=== PATIENT | male | born 1970 | race Caucasian/White ===

== ENCOUNTER 2017-07-14 21:15 | Inpatient (IN) | payer MEDICARE, MEDICAID ==
[~2017-07-14] VITALS: Ht 175.3 cm; Wt 75.5 kg
[~2017-07-14 21:15] MED LIST: NOCURR
[2017-07-14] MEDS ORDERED: DESV50TA10 PO (21:55)
[2017-07-14] MEDS ORDERED: DUTA.5 PO (21:55)
[2017-07-14] MEDS ORDERED: INSU100I26 SQ ×2 (21:55)
[2017-07-14 22:23] LABS: AMPHET/METH SCREEN,URINE NEGATIVE (NEGATIVE); BARBITURATE SCREEN, URINE NEGATIVE (NEGATIVE); BENZODIAZEPINES SCREEN,URINE NEGATIVE (NEGATIVE); CANNABINOID SCREEN,URINE POSITIVE (NEGATIVE); COCAINE SCREEN,URINE NEGATIVE (NEGATIVE); METHADONE SCREEN, URINE NEGATIVE (NEGATIVE); OPIATE SCREEN,URINE NEGATIVE (NEGATIVE)
[2017-07-14 22:24] LABS: PHENCYCLIDINE SCREEN,URINE NEGATIVE (NEGATIVE)
[2017-07-14 22:25] LABS: EOSINOPHILS % (AUTO) 0.4 % (1.0-6.0); HEMATOCRIT 48.2 % (41-53); HEMOGLOBIN 16.7 g/dL (13.5-17.5); LYMPHOCYTES # (AUTO) 2.1 K/uL (1.0-4.8); LYMPHOCYTES % (AUTO) 43.6 % (22.0-44.0); MEAN CORPUSCULAR HEMOGLOBIN 31.3 pg (26.0-34.0); MEAN CORPUSCULAR HGB CONC 34.7 G/dL (31.0-37.0); MEAN CORPUSCULAR VOLUME 90 fL (80-100); MONOCYTES # (AUTO) 0.5 K/uL (0.1-1.0); MONOCYTES % (AUTO) 10.8 % (2.0-9.0); NEUTROPHILS # (AUTO) 2.1 K/uL (1.8-7.7); NEUTROPHILS % (AUTO) 44.2 % (40.0-70.0); PLATELET COUNT (AUTO) 304 K/uL (150-450); RED BLOOD CELL COUNT(AUTO) 5.34 MIL/uL (4.50-5.90); RED CELL DISTRIBUTION WIDTH 15.4 % (11.5-14.5)
[2017-07-14 22:36] LABS: ANION GAP 21 mmol/L (8-16); CALCIUM, TOTAL 8.8 mg/dL (8.8-10.5); CARBON DIOXIDE 21 mmol/L (22-29); CHLORIDE 94 mmol/L (98-107); CREATININE 1.07 mg/dL (0.60-1.30); GLOMERULAR FILTR. RATE CALC > 60 mL/min (>60); GLUCOSE,RANDOM 337 mg/dL (70-110); POTASSIUM 4.2 mmol/L (3.5-5.1); SODIUM SERUM 136 mmol/L (136-145); UREA NITROGEN, BLOOD 9 mg/dL (7-18)
[2017-07-14 22:43] LABS: ALANINE AMINOTRANSFERASE 69 U/L (12-78); ALBUMIN 4.3 g/dL (3.4-5.0); ALKALINE PHOSPHATASE 146 U/L (46-116); ASPARTATE AMINOTRANSFERASE 46 U/L (15-37); BILIRUBIN,TOTAL 0.3 mg/dL (0.1-1.0); TOTAL PROTEIN, SERUM 8.5 g/dL (6.4-8.2)
[2017-07-14] MEDS ORDERED: INSULIN REGULAR, HUMAN 100 UNITS/ML SQ ONE (22:45)
[2017-07-15] MEDS ORDERED: HALOPERIDOL 5 MG TABLET PO PRN (00:45)
[2017-07-15] MEDS ORDERED: LORazepam 2 MG TABLET PO PRN (00:45)
[2017-07-15] MEDS ORDERED: INSULIN GLARGINE,HUM.REC.ANLOG 100 UNITS/ML SQ ONE (03:00)
[2017-07-15] MEDS ORDERED: LORazepam 2 MG TABLET PO ONE (04:45)
[2017-07-15] MEDS ORDERED: ACETAMINOPHEN 500 MG TABLET PO ONE (04:45)
[2017-07-15 09:35] VITALS: BP 121/89
[2017-07-15 10:12] VITALS: BP 140/85
[2017-07-15] MEDS ORDERED: HydrOXYzine PAMOATE 50 MG CAPSULE PO PRN (10:15)
[2017-07-15] MEDS ORDERED: CYANOCOBALAMIN 1,000 MCG/ML VIAL IM ONE (10:15)
[2017-07-15] MEDS: VENLAFAXINE HCL 75 MG ER CAPSULE PO SCH (10:30)
[2017-07-15] MEDS: THIAMINE HCL 100 MG TABLET PO SCH ×2 (10:30→17:27)
[2017-07-15] MEDS: FOLIC ACID 1 MG TABLET PO SCH (10:30)
[2017-07-15] MEDS: MULTIVITAMINS WITH MINERALS, THERAPEUTIC TABLET PO SCH (10:31)
[2017-07-15] MEDS: NICOTINE 21 MG/24 HOUR PATCH TD SCH (10:31)
[2017-07-15] MEDS: LORazepam 2 MG TABLET PO PRN ×2 (10:37→20:17)
[2017-07-15] MEDS ORDERED: [UNRECOGNIZED DRUG - OTHER] SQ SCH ×2 (11:45→21:00)
[2017-07-15] MEDS ORDERED: GLUCAGON,HUMAN RECOMBINANT 1 MG VIAL IM PRN (11:45)
[2017-07-15] MEDS ORDERED: BENZOCAINE/MENTHOL LOZENGE MM PRN (14:30)
[2017-07-15] MEDS ORDERED: BACITRACIN 28.4 GM OINTMENT TP PRN (14:30)
[2017-07-15] MEDS ORDERED: LOPERAMIDE HCL 2 MG CAPSULE PO PRN (14:30)
[2017-07-15] MEDS ORDERED: CloNIDine HCL 0.1 MG TABLET PO PRN (14:30)
[2017-07-15] MEDS ORDERED: ALBUTEROL SULFATE HFA 90 MCG/PUFF 8 GM INHALER IH PRN (14:30)
[2017-07-15] MEDS ORDERED: ONDANSETRON HCL 4 MG TABLET PO PRN (14:30)
[2017-07-15] MEDS ORDERED: MAG HYDROX/AL HYDROX/SIMETH ES 30 ML SUSPENSION UDCUP PO PRN (14:30)
[2017-07-15] MEDS ORDERED: PETROLATUM,WHITE 71 GM JELLY TP PRN (14:30)
[2017-07-15] MEDS ORDERED: MAGNESIUM CITRATE 300 ML ORAL SOLUTION PO ONE (14:30)
[2017-07-15 16:28] VITALS: BP 136/80
[2017-07-15 17:00] VITALS: BP 136/80
[2017-07-15] MEDS ORDERED: INSULIN LISPRO 100 UNITS/ML SQ ONE (17:30)
[2017-07-15] MEDS: INSULIN GLARGINE,HUM.REC.ANLOG 100 UNITS/ML SQ SCH (20:14)
[2017-07-15] MEDS: INSULIN LISPRO 100 UNITS/ML SQ PRN (20:14)
[2017-07-15] MEDS: ZOLPIDEM TARTRATE 10 MG TABLET PO PRN (22:47)
[2017-07-16] VITALS (8 sets, daily range): BP systolic 126–143; BP diastolic 80–98
[2017-07-16] MEDS: LORazepam 2 MG TABLET PO PRN (05:52)
[2017-07-16] MEDS ORDERED: LORazepam 2 MG TABLET PO PRN (07:00)
[2017-07-16 08:22] LABS: BASOPHILS % (AUTO) 0.7 % (0.0-2.0); EOSINOPHILS % (AUTO) 1.4 % (1.0-6.0); HEMATOCRIT 41.3 % (41-53); HEMOGLOBIN 14.5 g/dL (13.5-17.5); LYMPHOCYTES # (AUTO) 1.5 K/uL (1.0-4.8); LYMPHOCYTES % (AUTO) 38.9 % (22.0-44.0); MEAN CORPUSCULAR HEMOGLOBIN 31.2 pg (26.0-34.0); MEAN CORPUSCULAR HGB CONC 35.1 G/dL (31.0-37.0); MEAN CORPUSCULAR VOLUME 89 fL (80-100); MONOCYTES # (AUTO) 0.8 K/uL (0.1-1.0); MONOCYTES % (AUTO) 21.8 % (2.0-9.0); NEUTROPHILS # (AUTO) 1.4 K/uL (1.8-7.7); NEUTROPHILS % (AUTO) 37.2 % (40.0-70.0); PLATELET COUNT (AUTO) 254 K/uL (150-450); RED BLOOD CELL COUNT(AUTO) 4.64 MIL/uL (4.50-5.90)
[2017-07-16 08:36] LABS: ALANINE AMINOTRANSFERASE 55 U/L (12-78); ALBUMIN 3.7 g/dL (3.4-5.0); ALKALINE PHOSPHATASE 104 U/L (46-116); ANION GAP 8 mmol/L (8-16); ASPARTATE AMINOTRANSFERASE 41 U/L (15-37); BILIRUBIN,TOTAL 0.8 mg/dL (0.1-1.0); CALCIUM, TOTAL 8.9 mg/dL (8.8-10.5); CARBON DIOXIDE 31 mmol/L (22-29); CHLORIDE 97 mmol/L (98-107); CREATININE 0.78 mg/dL (0.60-1.30); GLOMERULAR FILTR. RATE CALC > 60 mL/min (>60); GLUCOSE,RANDOM 101 mg/dL (70-110); HEMOGLOBIN A1C 11.3 % (4.5-6.2); POTASSIUM 3.1 mmol/L (3.5-5.1); SODIUM SERUM 136 mmol/L (136-145); TOTAL PROTEIN, SERUM 7.1 g/dL (6.4-8.2); UREA NITROGEN, BLOOD 12 mg/dL (7-18)
[2017-07-16 08:57] LABS: CHOL/HDL RATIO 4.2 (4.2-7.3); FREE T4 (FREE THYROXINE) 0.91 ng/dL (0.76-1.46); THYROID STIMULATING HORMONE 2.31 uIU/mL (0.36-3.74)
[2017-07-16] MEDS: OMEPRAZOLE 20 MG CAPSULE PO SCH (09:03)
[2017-07-16] MEDS: VENLAFAXINE HCL 75 MG ER CAPSULE PO SCH (09:03)
[2017-07-16] MEDS: MULTIVITAMINS WITH MINERALS, THERAPEUTIC TABLET PO SCH (09:03)
[2017-07-16] MEDS: FOLIC ACID 1 MG TABLET PO SCH (09:03)
[2017-07-16] MEDS: LORazepam 2 MG TABLET PO SCH ×4 (09:04→20:35)
[2017-07-16] MEDS: DOCUSATE SODIUM 100 MG CAPSULE PO SCH (09:04)
[2017-07-16] MEDS: NICOTINE 21 MG/24 HOUR PATCH TD SCH (09:04)
[2017-07-16] MEDS: THIAMINE HCL 100 MG TABLET PO SCH ×2 (09:04→16:38)
[2017-07-16] MEDS: INSULIN GLARGINE,HUM.REC.ANLOG 100 UNITS/ML SQ SCH ×2 (09:12→20:49)
[2017-07-16 09:47] LABS: GLUCOSE,POINT OF CARE 339 MG/DL (70-110)
[2017-07-16 09:47] LABS: GLUCOMETER DEV NAME(LOC) BV2N3; GLUCOSE,POINT OF CARE 466 MG/DL (70-110)
[2017-07-16 09:47] LABS: GLUCOSE,POINT OF CARE 247 MG/DL (70-110)
[2017-07-16 09:47] LABS: GLUCOMETER DEV NAME(LOC) BV2N3; GLUCOSE,POINT OF CARE 409 MG/DL (70-110)
[2017-07-16 09:47] LABS: GLUCOMETER DEV NAME(LOC) BV2N3; GLUCOSE,POINT OF CARE 357 MG/DL (70-110)
[2017-07-16 09:47] LABS: GLUCOMETER DEV NAME(LOC) BV2N3; GLUCOSE,POINT OF CARE 271 MG/DL (70-110)
[2017-07-16 09:47] LABS: GLUCOSE,POINT OF CARE 300 MG/DL (70-110)
[2017-07-16 09:47] LABS: GLUCOMETER DEV NAME(LOC) BV2N3; GLUCOSE,POINT OF CARE 101 MG/DL (70-110)
[2017-07-16] MEDS ORDERED: POTASSIUM CHLORIDE 20 MEQ ER TABLET PO ONE (10:00)
[2017-07-16 11:02] LABS: GLUCOMETER DEV NAME(LOC) BV2N3; GLUCOSE,POINT OF CARE 321 MG/DL (70-110)
[2017-07-16] MEDS: INSULIN LISPRO 100 UNITS/ML SQ PRN ×3 (11:03→20:49)
[2017-07-16] MEDS: MAGNESIUM HYDROXIDE SUSPENSION 30 ML UDCUP PO PRN (12:59)
[2017-07-16] MEDS: DUTASTERIDE 0.5 MG CAPSULE PO SCH (16:38)
[2017-07-16 19:13] LABS: GLUCOMETER DEV NAME(LOC) BV2N3; GLUCOSE,POINT OF CARE 348 MG/DL (70-110)
[2017-07-16] MEDS: SIMVASTATIN 10 MG TABLET PO SCH (20:35)
[2017-07-16 20:37] LABS: GLUCOMETER DEV NAME(LOC) BV2N3; GLUCOSE,POINT OF CARE 391 MG/DL (70-110)
[2017-07-16] MEDS: ZOLPIDEM TARTRATE 10 MG TABLET PO PRN (22:37)
[2017-07-17 06:31] VITALS: BP 124/90
[2017-07-17 06:32] VITALS: BP 124/90
[2017-07-17 06:37] LABS: GLUCOMETER DEV NAME(LOC) BV2N3; GLUCOSE,POINT OF CARE 187 MG/DL (70-110)
[2017-07-17] MEDS: INSULIN LISPRO 100 UNITS/ML SQ PRN ×4 (06:38→20:41)
[2017-07-17 08:26] VITALS: BP 129/86
[2017-07-17] MEDS: THIAMINE HCL 100 MG TABLET PO SCH ×2 (08:58→16:31)
[2017-07-17] MEDS: FOLIC ACID 1 MG TABLET PO SCH (08:58)
[2017-07-17] MEDS: DOCUSATE SODIUM 100 MG CAPSULE PO SCH (08:58)
[2017-07-17] MEDS: LORazepam 2 MG TABLET PO SCH ×4 (08:58→20:57)
[2017-07-17] MEDS: DUTASTERIDE 0.5 MG CAPSULE PO SCH (08:58)
[2017-07-17] MEDS: VENLAFAXINE HCL 75 MG ER CAPSULE PO SCH (08:58)
[2017-07-17] MEDS: OMEPRAZOLE 20 MG CAPSULE PO SCH (08:58)
[2017-07-17] MEDS: MULTIVITAMINS WITH MINERALS, THERAPEUTIC TABLET PO SCH (08:58)
[2017-07-17] MEDS: NICOTINE 21 MG/24 HOUR PATCH TD SCH (08:59)
[2017-07-17] MEDS: INSULIN GLARGINE,HUM.REC.ANLOG 100 UNITS/ML SQ SCH ×2 (09:08→20:38)
[2017-07-17 09:13] LABS: GLUCOMETER DEV NAME(LOC) BV2N3; GLUCOSE,POINT OF CARE 366 MG/DL (70-110)
[2017-07-17 11:02] LABS: GLUCOMETER DEV NAME(LOC) BV2N3; GLUCOSE,POINT OF CARE 266 MG/DL (70-110)
[2017-07-17] MEDS ORDERED: TraMADol HCL 50 MG TABLET PO PRN (14:45)
[2017-07-17 16:42] LABS: GLUCOMETER DEV NAME(LOC) BV2N3; GLUCOSE,POINT OF CARE 315 MG/DL (70-110)
[2017-07-17 16:58] VITALS: BP 138/84
[2017-07-17 16:59] VITALS: BP 138/84
[2017-07-17 20:39] LABS: GLUCOMETER DEV NAME(LOC) BV2N3; GLUCOSE,POINT OF CARE 298 MG/DL (70-110)
[2017-07-17] MEDS ORDERED: POTASSIUM CHLORIDE 20 MEQ ER TABLET PO ONE (20:45)
[2017-07-17] MEDS: SIMVASTATIN 10 MG TABLET PO SCH (20:58)
[2017-07-17] MEDS: LIDOCAINE HCL 5% TRANSDERMAL PATCH TD SCH (21:49)
[2017-07-17] MEDS: ZOLPIDEM TARTRATE 10 MG TABLET PO PRN (22:38)
[2017-07-18 06:13] LABS: GLUCOMETER DEV NAME(LOC) BV2N3; GLUCOSE,POINT OF CARE 265 MG/DL (70-110)
[2017-07-18] MEDS: INSULIN LISPRO 100 UNITS/ML SQ PRN ×3 (06:30→20:29)
[2017-07-18] MEDS ORDERED: LORazepam 1 MG TABLET PO PRN (07:00)
[2017-07-18 08:09] VITALS: BP 119/87
[2017-07-18 08:20] LABS: ANION GAP 5 mmol/L (8-16); CALCIUM, TOTAL 8.9 mg/dL (8.8-10.5); CARBON DIOXIDE 29 mmol/L (22-29); CHLORIDE 100 mmol/L (98-107); CREATININE 0.81 mg/dL (0.60-1.30); GLOMERULAR FILTR. RATE CALC > 60 mL/min (>60); GLUCOSE,RANDOM 230 mg/dL (70-110); POTASSIUM 4.2 mmol/L (3.5-5.1); SODIUM SERUM 134 mmol/L (136-145); UREA NITROGEN, BLOOD 15 mg/dL (7-18)
[2017-07-18] MEDS: FOLIC ACID 1 MG TABLET PO SCH (08:56)
[2017-07-18] MEDS: OMEPRAZOLE 20 MG CAPSULE PO SCH (08:56)
[2017-07-18] MEDS: DUTASTERIDE 0.5 MG CAPSULE PO SCH (08:56)
[2017-07-18] MEDS: THIAMINE HCL 100 MG TABLET PO SCH ×2 (08:56→16:29)
[2017-07-18] MEDS: LORazepam 1 MG TABLET PO SCH ×4 (08:56→20:31)
[2017-07-18] MEDS: DOCUSATE SODIUM 100 MG CAPSULE PO SCH (08:56)
[2017-07-18] MEDS: MULTIVITAMINS WITH MINERALS, THERAPEUTIC TABLET PO SCH (08:56)
[2017-07-18] MEDS: VENLAFAXINE HCL 75 MG ER CAPSULE PO SCH (08:56)
[2017-07-18] MEDS: NICOTINE 21 MG/24 HOUR PATCH TD SCH (08:57)
[2017-07-18] MEDS: -LIDODERM PATCH NOTE- MISC SCH (09:10)
[2017-07-18] MEDS: INSULIN GLARGINE,HUM.REC.ANLOG 100 UNITS/ML SQ SCH ×2 (09:11→20:30)
[2017-07-18 09:18] LABS: GLUCOMETER DEV NAME(LOC) BV2N3; GLUCOSE,POINT OF CARE 334 MG/DL (70-110)
[2017-07-18 11:17] LABS: GLUCOMETER DEV NAME(LOC) BV2N3; GLUCOSE,POINT OF CARE 275 MG/DL (70-110)
[2017-07-18 16:07] VITALS: BP 123/79
[2017-07-18 16:16] VITALS: BP 123/79
[2017-07-18 16:27] LABS: GLUCOMETER DEV NAME(LOC) BV2N3; GLUCOSE,POINT OF CARE 455 MG/DL (70-110)
[2017-07-18] MEDS ORDERED: INSULIN LISPRO 100 UNITS/ML SQ ONE (16:45)
[2017-07-18 17:18] LABS: GLUCOMETER DEV NAME(LOC) BV2N3; GLUCOSE,POINT OF CARE 347 MG/DL (70-110)
[2017-07-18 20:12] LABS: GLUCOMETER DEV NAME(LOC) BV2N3; GLUCOSE,POINT OF CARE 220 MG/DL (70-110)
[2017-07-18] MEDS: SIMVASTATIN 10 MG TABLET PO SCH (20:31)
[2017-07-18] MEDS: LIDOCAINE HCL 5% TRANSDERMAL PATCH TD SCH (21:12)
[2017-07-18] MEDS: ZOLPIDEM TARTRATE 10 MG TABLET PO PRN (22:26)
[2017-07-19 00:52] VITALS: BP 117/79
[2017-07-19 00:55] VITALS: BP 117/79
[2017-07-19 06:22] LABS: GLUCOMETER DEV NAME(LOC) BV2N3; GLUCOSE,POINT OF CARE 193 MG/DL (70-110)
[2017-07-19] MEDS: INSULIN LISPRO 100 UNITS/ML SQ PRN ×4 (06:29→20:33)
[2017-07-19] MEDS ORDERED: LORazepam 1 MG TABLET PO PRN (07:00)
[2017-07-19] MEDS: OMEPRAZOLE 20 MG CAPSULE PO SCH (09:05)
[2017-07-19] MEDS: VENLAFAXINE HCL 150 MG ER CAPSULE PO SCH (09:05)
[2017-07-19] MEDS: DOCUSATE SODIUM 100 MG CAPSULE PO SCH (09:05)
[2017-07-19] MEDS: DUTASTERIDE 0.5 MG CAPSULE PO SCH (09:05)
[2017-07-19] MEDS: NICOTINE 21 MG/24 HOUR PATCH TD SCH (09:06)
[2017-07-19] MEDS: -LIDODERM PATCH NOTE- MISC SCH (09:06)
[2017-07-19] MEDS: THIAMINE HCL 100 MG TABLET PO SCH ×2 (09:06→16:38)
[2017-07-19] MEDS: FOLIC ACID 1 MG TABLET PO SCH (09:06)
[2017-07-19] MEDS: MULTIVITAMINS WITH MINERALS, THERAPEUTIC TABLET PO SCH (09:06)
[2017-07-19] MEDS: INSULIN GLARGINE,HUM.REC.ANLOG 100 UNITS/ML SQ SCH ×2 (09:16→20:32)
[2017-07-19 09:18] LABS: GLUCOMETER DEV NAME(LOC) BV2N3; GLUCOSE,POINT OF CARE 374 MG/DL (70-110)
[2017-07-19 10:08] VITALS: BP 103/62
[2017-07-19 11:07] LABS: GLUCOMETER DEV NAME(LOC) BV2N3; GLUCOSE,POINT OF CARE 317 MG/DL (70-110)
[2017-07-19 16:32] VITALS: BP 118/76
[2017-07-19 16:38] LABS: GLUCOMETER DEV NAME(LOC) BV2N3; GLUCOSE,POINT OF CARE 274 MG/DL (70-110)
[2017-07-19 17:01] VITALS: BP 118/76
[2017-07-19] MEDS ORDERED: MAGNESIUM CITRATE 300 ML ORAL SOLUTION PO ONE (18:15)
[2017-07-19 20:23] LABS: GLUCOMETER DEV NAME(LOC) BV2N3; GLUCOSE,POINT OF CARE 348 MG/DL (70-110)
[2017-07-19] MEDS: SIMVASTATIN 10 MG TABLET PO SCH (20:32)
[2017-07-19] MEDS: LIDOCAINE HCL 5% TRANSDERMAL PATCH TD SCH (20:46)
[2017-07-20 02:41] VITALS: BP 118/90
[2017-07-20 06:37] LABS: GLUCOMETER DEV NAME(LOC) BV2N3; GLUCOSE,POINT OF CARE 122 MG/DL (70-110)
[2017-07-20] MEDS: INSULIN LISPRO 100 UNITS/ML SQ PRN ×4 (06:38→20:30)
[2017-07-20 08:00] VITALS: BP 119/73
[2017-07-20] MEDS: VENLAFAXINE HCL 150 MG ER CAPSULE PO SCH (08:08)
[2017-07-20] MEDS: OMEPRAZOLE 20 MG CAPSULE PO SCH (08:08)
[2017-07-20] MEDS: MULTIVITAMINS WITH MINERALS, THERAPEUTIC TABLET PO SCH (08:08)
[2017-07-20] MEDS: DOCUSATE SODIUM 100 MG CAPSULE PO SCH (08:08)
[2017-07-20] MEDS: FOLIC ACID 1 MG TABLET PO SCH (08:08)
[2017-07-20] MEDS: THIAMINE HCL 100 MG TABLET PO SCH ×2 (08:08→16:25)
[2017-07-20] MEDS: DUTASTERIDE 0.5 MG CAPSULE PO SCH (08:08)
[2017-07-20] MEDS: NICOTINE 21 MG/24 HOUR PATCH TD SCH (08:09)
[2017-07-20] MEDS: -LIDODERM PATCH NOTE- MISC SCH (08:22)
[2017-07-20] MEDS: INSULIN GLARGINE,HUM.REC.ANLOG 100 UNITS/ML SQ SCH ×2 (08:22→20:30)
[2017-07-20 08:27] LABS: GLUCOMETER DEV NAME(LOC) BV2N3; GLUCOSE,POINT OF CARE 352 MG/DL (70-110)
[2017-07-20 11:00] VITALS: BP 115/74
[2017-07-20] MEDS: TraMADol HCL 50 MG TABLET PO PRN ×2 (11:00→20:25)
[2017-07-20 11:08] LABS: GLUCOMETER DEV NAME(LOC) BV2N3; GLUCOSE,POINT OF CARE 267 MG/DL (70-110)
[2017-07-20] MEDS: TiZANidine HCL 4 MG TABLET PO SCH ×3 (12:00→16:25)
[2017-07-20] MEDS: TERBINAFINE HCL 1% 30 GM CREAM TP SCH ×2 (12:57→16:26)
[2017-07-20 16:08] VITALS: BP 121/85
[2017-07-20 16:37] LABS: GLUCOMETER DEV NAME(LOC) BV2N3; GLUCOSE,POINT OF CARE 186 MG/DL (70-110)
[2017-07-20] MEDS: SIMVASTATIN 10 MG TABLET PO SCH (20:24)
[2017-07-20 20:25] VITALS: BP 117/77
[2017-07-20] MEDS: LIDOCAINE HCL 5% TRANSDERMAL PATCH TD SCH (20:25)
[2017-07-20 20:44] LABS: GLUCOMETER DEV NAME(LOC) BV2N3; GLUCOSE,POINT OF CARE 262 MG/DL (70-110)
[2017-07-21 00:27] VITALS: BP 143/61
[2017-07-21 06:42] LABS: GLUCOMETER DEV NAME(LOC) BV2N3; GLUCOSE,POINT OF CARE 126 MG/DL (70-110)
[2017-07-21] MEDS: INSULIN LISPRO 100 UNITS/ML SQ PRN ×4 (06:43→20:52)
[2017-07-21 08:00] VITALS: BP 110/70
[2017-07-21] MEDS: TiZANidine HCL 4 MG TABLET PO SCH ×3 (08:55→16:32)
[2017-07-21] MEDS: THIAMINE HCL 100 MG TABLET PO SCH ×2 (08:55→16:32)
[2017-07-21] MEDS: MULTIVITAMINS WITH MINERALS, THERAPEUTIC TABLET PO SCH (08:56)
[2017-07-21] MEDS: FOLIC ACID 1 MG TABLET PO SCH (08:56)
[2017-07-21] MEDS: VENLAFAXINE HCL 150 MG ER CAPSULE PO SCH (08:56)
[2017-07-21] MEDS: DUTASTERIDE 0.5 MG CAPSULE PO SCH (08:56)
[2017-07-21] MEDS: OMEPRAZOLE 20 MG CAPSULE PO SCH (08:56)
[2017-07-21] MEDS: DOCUSATE SODIUM 100 MG CAPSULE PO SCH (08:56)
[2017-07-21] MEDS: NICOTINE 21 MG/24 HOUR PATCH TD SCH (08:56)
[2017-07-21] MEDS: TERBINAFINE HCL 1% 30 GM CREAM TP SCH ×2 (08:59→16:32)
[2017-07-21] MEDS: -LIDODERM PATCH NOTE- MISC SCH (09:04)
[2017-07-21] MEDS: TraMADol HCL 50 MG TABLET PO PRN ×2 (09:07→18:36)
[2017-07-21 09:12] LABS: GLUCOMETER DEV NAME(LOC) BV2N3; GLUCOSE,POINT OF CARE 440 MG/DL (70-110)
[2017-07-21] MEDS: INSULIN GLARGINE,HUM.REC.ANLOG 100 UNITS/ML SQ SCH ×2 (09:13→20:50)
[2017-07-21 10:27] LABS: GLUCOMETER DEV NAME(LOC) BV2N3; GLUCOSE,POINT OF CARE 477 MG/DL (70-110)
[2017-07-21] MEDS ORDERED: INSULIN LISPRO 100 UNITS/ML SQ ONE (10:30)
[2017-07-21 11:48] LABS: GLUCOMETER DEV NAME(LOC) BV2N3; GLUCOSE,POINT OF CARE 358 MG/DL (70-110)
[2017-07-21 13:22] LABS: GLUCOMETER DEV NAME(LOC) BV2N3; GLUCOSE,POINT OF CARE 135 MG/DL (70-110)
[2017-07-21 15:32] LABS: GLUCOMETER DEV NAME(LOC) BV2N3; GLUCOSE,POINT OF CARE 196 MG/DL (70-110)
[2017-07-21 16:20] VITALS: BP 125/79
[2017-07-21 18:29] VITALS: BP 113/75
[2017-07-21 20:17] LABS: GLUCOMETER DEV NAME(LOC) BV2N3; GLUCOSE,POINT OF CARE 326 MG/DL (70-110)
[2017-07-21] MEDS: SIMVASTATIN 10 MG TABLET PO SCH (20:41)
[2017-07-21] MEDS: LIDOCAINE HCL 5% TRANSDERMAL PATCH TD SCH (21:28)
[2017-07-21] MEDS: MAGNESIUM HYDROXIDE SUSPENSION 30 ML UDCUP PO PRN (22:06)
[2017-07-22 00:51] VITALS: BP 125/89
[2017-07-22 06:33] LABS: GLUCOMETER DEV NAME(LOC) BV2N3; GLUCOSE,POINT OF CARE 96 MG/DL (70-110)
[2017-07-22] MEDS: MetFORMIN HCL 500 MG TABLET PO SCH ×2 (06:56→16:31)
[2017-07-22 08:18] VITALS: BP 112/72
[2017-07-22] MEDS: VENLAFAXINE HCL 150 MG ER CAPSULE PO SCH (08:59)
[2017-07-22] MEDS: DOCUSATE SODIUM 100 MG CAPSULE PO SCH (08:59)
[2017-07-22] MEDS: DUTASTERIDE 0.5 MG CAPSULE PO SCH (08:59)
[2017-07-22] MEDS: OMEPRAZOLE 20 MG CAPSULE PO SCH (08:59)
[2017-07-22] MEDS: MULTIVITAMINS WITH MINERALS, THERAPEUTIC TABLET PO SCH (08:59)
[2017-07-22] MEDS: TiZANidine HCL 4 MG TABLET PO SCH ×3 (08:59→16:31)
[2017-07-22] MEDS: THIAMINE HCL 100 MG TABLET PO SCH ×2 (08:59→16:31)
[2017-07-22] MEDS: FOLIC ACID 1 MG TABLET PO SCH (08:59)
[2017-07-22] MEDS: NICOTINE 21 MG/24 HOUR PATCH TD SCH (09:01)
[2017-07-22] MEDS: TERBINAFINE HCL 1% 30 GM CREAM TP SCH ×2 (09:01→16:33)
[2017-07-22] MEDS: INSULIN GLARGINE,HUM.REC.ANLOG 100 UNITS/ML SQ SCH ×2 (09:08→20:32)
[2017-07-22] MEDS: TraMADol HCL 50 MG TABLET PO PRN ×2 (09:09→18:31)
[2017-07-22] MEDS: -LIDODERM PATCH NOTE- MISC SCH (09:09)
[2017-07-22] MEDS ORDERED: MAGNESIUM CITRATE 300 ML ORAL SOLUTION PO ONE (09:15)
[2017-07-22 09:22] LABS: GLUCOMETER DEV NAME(LOC) BV2N3; GLUCOSE,POINT OF CARE 335 MG/DL (70-110)
[2017-07-22] MEDS: INSULIN LISPRO 100 UNITS/ML SQ PRN ×3 (10:59→20:31)
[2017-07-22 11:03] LABS: GLUCOMETER DEV NAME(LOC) BV2N3; GLUCOSE,POINT OF CARE 252 MG/DL (70-110)
[2017-07-22 16:01] VITALS: BP 133/74
[2017-07-22 16:13] LABS: GLUCOMETER DEV NAME(LOC) BV2N3; GLUCOSE,POINT OF CARE 220 MG/DL (70-110)
[2017-07-22 18:32] VITALS: BP 124/77
[2017-07-22 20:28] LABS: GLUCOMETER DEV NAME(LOC) BV2N3; GLUCOSE,POINT OF CARE 216 MG/DL (70-110)
[2017-07-22] MEDS: SIMVASTATIN 10 MG TABLET PO SCH (20:33)
[2017-07-22] MEDS: LIDOCAINE HCL 5% TRANSDERMAL PATCH TD SCH (21:54)
[2017-07-23] MEDS: MAGNESIUM HYDROXIDE SUSPENSION 30 ML UDCUP PO PRN (00:33)
[2017-07-23 02:53] VITALS: BP 114/88
[2017-07-23 06:07] LABS: GLUCOMETER DEV NAME(LOC) BV2N3; GLUCOSE,POINT OF CARE 140 MG/DL (70-110)
[2017-07-23] MEDS: MetFORMIN HCL 500 MG TABLET PO SCH ×2 (07:07→16:27)
[2017-07-23] MEDS: INSULIN LISPRO 100 UNITS/ML SQ PRN ×4 (07:08→21:06)
[2017-07-23] MEDS: MULTIVITAMINS WITH MINERALS, THERAPEUTIC TABLET PO SCH (08:27)
[2017-07-23] MEDS: VENLAFAXINE HCL 150 MG ER CAPSULE PO SCH (08:27)
[2017-07-23] MEDS: DUTASTERIDE 0.5 MG CAPSULE PO SCH (08:27)
[2017-07-23] MEDS: DOCUSATE SODIUM 100 MG CAPSULE PO SCH (08:27)
[2017-07-23] MEDS: FOLIC ACID 1 MG TABLET PO SCH (08:27)
[2017-07-23] MEDS: THIAMINE HCL 100 MG TABLET PO SCH ×2 (08:27→16:27)
[2017-07-23] MEDS: OMEPRAZOLE 20 MG CAPSULE PO SCH (08:27)
[2017-07-23] MEDS: TiZANidine HCL 4 MG TABLET PO SCH ×3 (08:27→16:27)
[2017-07-23] MEDS: POLYETHYLENE GLYCOL 3350 17 GM PACKET PO SCH (08:27)
[2017-07-23] MEDS: NICOTINE 21 MG/24 HOUR PATCH TD SCH (08:28)
[2017-07-23 08:30] VITALS: BP 114/81
[2017-07-23] MEDS: TERBINAFINE HCL 1% 30 GM CREAM TP SCH ×2 (08:32→16:37)
[2017-07-23 08:33] LABS: GLUCOMETER DEV NAME(LOC) BV2N3; GLUCOSE,POINT OF CARE 218 MG/DL (70-110)
[2017-07-23] MEDS: INSULIN GLARGINE,HUM.REC.ANLOG 100 UNITS/ML SQ SCH ×2 (08:38→21:06)
[2017-07-23] MEDS: -LIDODERM PATCH NOTE- MISC SCH (08:39)
[2017-07-23 11:07] VITALS: BP 120/73
[2017-07-23 11:07] LABS: GLUCOMETER DEV NAME(LOC) BV2N3; GLUCOSE,POINT OF CARE 240 MG/DL (70-110)
[2017-07-23] MEDS: TraMADol HCL 50 MG TABLET PO PRN (11:07)
[2017-07-23 16:03] VITALS: BP 126/83
[2017-07-23 16:22] LABS: GLUCOMETER DEV NAME(LOC) BV2N3; GLUCOSE,POINT OF CARE 228 MG/DL (70-110)
[2017-07-23 20:37] LABS: GLUCOMETER DEV NAME(LOC) BV2N3; GLUCOSE,POINT OF CARE 180 MG/DL (70-110)
[2017-07-23] MEDS: SIMVASTATIN 10 MG TABLET PO SCH (21:00)
[2017-07-23] MEDS: ZOLPIDEM TARTRATE 10 MG TABLET PO PRN (21:13)
[2017-07-23] MEDS: LIDOCAINE HCL 5% TRANSDERMAL PATCH TD SCH (21:19)
[2017-07-24] MEDS: MetFORMIN HCL 500 MG TABLET PO SCH ×2 (06:05→16:55)
[2017-07-24 06:31] VITALS: BP 116/75
[2017-07-24 06:38] LABS: GLUCOMETER DEV NAME(LOC) BV2N3; GLUCOSE,POINT OF CARE 73 MG/DL (70-110)
[2017-07-24] MEDS ORDERED: VENL150C2 PO (06:42)
[2017-07-24 08:29] VITALS: BP 119/79
[2017-07-24] MEDS: TERBINAFINE HCL 1% 30 GM CREAM TP SCH ×2 (09:00→17:10)
[2017-07-24] MEDS: POLYETHYLENE GLYCOL 3350 17 GM PACKET PO SCH ×4 (09:00→17:00)
[2017-07-24] MEDS: DUTASTERIDE 0.5 MG CAPSULE PO SCH (09:08)
[2017-07-24] MEDS: THIAMINE HCL 100 MG TABLET PO SCH ×2 (09:08→16:55)
[2017-07-24] MEDS: OMEPRAZOLE 20 MG CAPSULE PO SCH (09:08)
[2017-07-24] MEDS: NICOTINE 21 MG/24 HOUR PATCH TD SCH (09:08)
[2017-07-24] MEDS: VENLAFAXINE HCL 150 MG ER CAPSULE PO SCH (09:08)
[2017-07-24] MEDS: MULTIVITAMINS WITH MINERALS, THERAPEUTIC TABLET PO SCH (09:08)
[2017-07-24] MEDS: TiZANidine HCL 4 MG TABLET PO SCH ×3 (09:09→16:55)
[2017-07-24] MEDS: DOCUSATE SODIUM 100 MG CAPSULE PO SCH (09:09)
[2017-07-24] MEDS: FOLIC ACID 1 MG TABLET PO SCH (09:09)
[2017-07-24] MEDS ORDERED: OMEP20 PO (09:13)
[2017-07-24] MEDS ORDERED: METF500T6 PO (09:13)
[2017-07-24] MEDS ORDERED: DSS100 PO (09:13)
[2017-07-24] MEDS ORDERED: INSLAN SQ ×2 (09:13)
[2017-07-24] MEDS ORDERED: TIZA4TAB4 PO (09:13)
[2017-07-24] MEDS ORDERED: VENL-68 PO (09:13)
[2017-07-24] MEDS ORDERED: SIMV-259 PO (09:13)
[2017-07-24] MEDS ORDERED: MIRALAX PO (09:13)
[2017-07-24 09:27] LABS: GLUCOMETER DEV NAME(LOC) BV2N3; GLUCOSE,POINT OF CARE 345 MG/DL (70-110)
[2017-07-24] MEDS: INSULIN GLARGINE,HUM.REC.ANLOG 100 UNITS/ML SQ SCH ×2 (09:29→20:40)
[2017-07-24] MEDS: TraMADol HCL 50 MG TABLET PO PRN ×2 (09:33→19:52)
[2017-07-24] MEDS: -LIDODERM PATCH NOTE- MISC SCH (09:33)
[2017-07-24] MEDS: INSULIN LISPRO 100 UNITS/ML SQ PRN ×3 (11:36→20:41)
[2017-07-24 11:48] LABS: GLUCOMETER DEV NAME(LOC) BV2N3; GLUCOSE,POINT OF CARE 383 MG/DL (70-110)
[2017-07-24 16:03] VITALS: BP 132/83
[2017-07-24 16:37] LABS: GLUCOMETER DEV NAME(LOC) BV2N3; GLUCOSE,POINT OF CARE 311 MG/DL (70-110)
[2017-07-24 19:53] VITALS: BP 120/84
[2017-07-24] MEDS: SIMVASTATIN 10 MG TABLET PO SCH (20:40)
[2017-07-24 20:42] LABS: GLUCOMETER DEV NAME(LOC) BV2N3; GLUCOSE,POINT OF CARE 277 MG/DL (70-110)
[2017-07-24] MEDS: LIDOCAINE HCL 5% TRANSDERMAL PATCH TD SCH (21:21)
[2017-07-24 23:30] VITALS: BP 129/88
[2017-07-25 03:45] VITALS: BP 120/82
[2017-07-25 06:12] LABS: GLUCOMETER DEV NAME(LOC) BV2N3; GLUCOSE,POINT OF CARE 148 MG/DL (70-110)
[2017-07-25] MEDS: INSULIN LISPRO 100 UNITS/ML SQ PRN (06:13)
[2017-07-25] MEDS: MetFORMIN HCL 500 MG TABLET PO SCH (06:49)
== END 2017-07-25 07:15 | disposition home or self-care (01) | DRG 885 ==
LOC: EDUNIT# 21:15 → EMS 21:16 → B2S 07-15 03:25 → B2X 07-15 04:45
DX: F33.2 Major depressive disorder, recurrent severe without psychotic features (principal); E11.65 Type 2 diabetes mellitus with hyperglycemia; K70.30 Alcoholic cirrhosis of liver without ascites; R45.851 Suicidal ideations; E86.0 Dehydration; F10.229 Alcohol dependence with intoxication, unspecified; Y90.8 Blood alcohol level of 240 mg/100 ml or more; F41.9 Anxiety disorder, unspecified; G47.00 Insomnia, unspecified; I10 Essential (primary) hypertension; K59.00 Constipation, unspecified; F12.10 Cannabis abuse, uncomplicated; Z59.0 Homelessness; Z88.6 Allergy status to analgesic agent; Z88.0 Allergy status to penicillin; Z79.899 Other long term (current) drug therapy; Z87.820 Personal history of traumatic brain injury; Z91.5 Personal history of self-harm; Z71.51 Drug abuse counseling and surveillance of drug abuser
CPT/HCPCS: 83036; 84132; 84439; 84443; 87081; 96372; 99285; G0480; J1815; J3420

== ENCOUNTER 2017-08-12 18:25 | Inpatient (IN) | payer MEDICAID, MEDICARE, OTHER ==
[~2017-08-12] VITALS: Ht 175.3 cm; Wt 79.5 kg
[~2017-08-12 18:25] MED LIST changes: +DSS100 PO; +DUTA.5 PO; +INSLAN SQ; +METF500T6 PO; +MIRALAX PO; -NOCURR; +OMEP20 PO; +SIMV-259 PO; +TIZA4TAB4 PO; +VENL-68 PO; +VENL150C2 PO
[2017-08-12] MEDS ORDERED: INSULIN REGULAR, HUMAN 100 UNITS/ML SQ ONE (19:00)
[2017-08-12] MEDS ORDERED: ATOR10TA84 PO (19:01)
[2017-08-12] MEDS ORDERED: OXYC10 PO (19:01)
[2017-08-12] MEDS ORDERED: INSU100V SQ (19:01)
[2017-08-12] MEDS ORDERED: CLON-570 PO (19:01)
[2017-08-12] MEDS ORDERED: DESV25TA PO (19:01)
[2017-08-12] MEDS ORDERED: INSLAN SQ (19:01)
[2017-08-12] MEDS ORDERED: AMPH20CA PO (19:01)
[2017-08-12 19:34] LABS: BASOPHILS % (AUTO) 0.5 % (0.0-2.0); EOSINOPHILS % (AUTO) 0.8 % (1.0-6.0); HEMATOCRIT 43.7 % (41-53); HEMOGLOBIN 15.3 g/dL (13.5-17.5); LYMPHOCYTES % (AUTO) 40.3 % (22.0-44.0); MEAN CORPUSCULAR HEMOGLOBIN 32.2 pg (26.0-34.0); MEAN CORPUSCULAR VOLUME 92 fL (80-100); MONOCYTES # (AUTO) 0.3 K/uL (0.1-1.0); NEUTROPHILS # (AUTO) 2.6 K/uL (1.8-7.7); NEUTROPHILS % (AUTO) 52.4 % (40.0-70.0); PLATELET COUNT (AUTO) 198 K/uL (150-450); RED BLOOD CELL COUNT(AUTO) 4.75 MIL/uL (4.50-5.90); RED CELL DISTRIBUTION WIDTH 15.2 % (11.5-14.5)
[2017-08-12 19:43] LABS: ANION GAP 9 mmol/L (8-16); CALCIUM, TOTAL 8.8 mg/dL (8.8-10.5); CARBON DIOXIDE 28 mmol/L (22-29); CHLORIDE 101 mmol/L (98-107); CREATININE 1.05 mg/dL (0.60-1.30); GLOMERULAR FILTR. RATE CALC > 60 mL/min (>60); GLUCOSE,RANDOM 388 mg/dL (70-110); POTASSIUM 4.1 mmol/L (3.5-5.1); SODIUM SERUM 138 mmol/L (136-145); UREA NITROGEN, BLOOD 9 mg/dL (7-18)
[2017-08-12 19:49] LABS: ALANINE AMINOTRANSFERASE 40 U/L (12-78); ALKALINE PHOSPHATASE 111 U/L (46-116); ASPARTATE AMINOTRANSFERASE 31 U/L (15-37); BILIRUBIN,TOTAL 0.3 mg/dL (0.1-1.0); TOTAL PROTEIN, SERUM 7.7 g/dL (6.4-8.2)
[2017-08-12 20:38] LABS: GLUCOSE,POINT OF CARE 346 MG/DL (70-110)
[2017-08-12 20:47] LABS: AMPHET/METH SCREEN,URINE NEGATIVE (NEGATIVE); BARBITURATE SCREEN, URINE NEGATIVE (NEGATIVE); BENZODIAZEPINES SCREEN,URINE NEGATIVE (NEGATIVE); CANNABINOID SCREEN,URINE NEGATIVE (NEGATIVE); COCAINE SCREEN,URINE NEGATIVE (NEGATIVE); METHADONE SCREEN, URINE NEGATIVE (NEGATIVE); OPIATE SCREEN,URINE NEGATIVE (NEGATIVE); PHENCYCLIDINE SCREEN,URINE NEGATIVE (NEGATIVE)
[2017-08-12] MEDS ORDERED: ZOLPIDEM TARTRATE 10 MG TABLET PO PRN (21:00)
[2017-08-12] MEDS ORDERED: HALOPERIDOL 5 MG TABLET PO PRN (21:00)
[2017-08-12] MEDS ORDERED: HydrOXYzine PAMOATE 50 MG CAPSULE PO PRN (21:00)
[2017-08-12] MEDS ORDERED: LORazepam 2 MG TABLET PO PRN (21:00)
[2017-08-12] MEDS ORDERED: LOPERAMIDE HCL 2 MG CAPSULE PO PRN (21:00)
[2017-08-12] MEDS ORDERED: CYANOCOBALAMIN 1,000 MCG/ML VIAL IM ONE (21:00)
[2017-08-12] MEDS ORDERED: GuaiFENesin/D-METHORPHAN [SUGAR-FREE] 200-20MG/10 ML SYRUP UDCUP PO PRN (21:00)
[2017-08-12] MEDS: MULTIVITAMINS WITH MINERALS, THERAPEUTIC TABLET PO SCH (21:10)
[2017-08-12] MEDS: THIAMINE HCL 100 MG TABLET PO SCH (21:10)
[2017-08-12] MEDS: FOLIC ACID 1 MG TABLET PO SCH (21:10)
[2017-08-12 23:25] LABS: APPEARANCE,URINE CLEAR (CLEAR); BILIRUBIN,URINE NEGATIVE (NEGATIVE); GLUCOSE, URINE (UA) >=1000 mg/dL (NEGATIVE); KETONES,URINE 40 mg/dL (NEGATIVE); LEUKOCYTE ESTERASE ,URINE NEGATIVE (NEGATIVE); NITRATE,URINE NEGATIVE (NEGATIVE); OCCULT BLOOD,URINE NEGATIVE (NEGATIVE); PH,URINE 5.5 (5.0-8.0); PROTEIN,URINE NEGATIVE (NEGATIVE); UROBILINOGEN,URINE 0.2 mg/dL (<=1.0)
[2017-08-12 23:27] LABS: GLUCOSE,POINT OF CARE 210 MG/DL (70-110)
[2017-08-12 23:59] LABS: BACTERIA,URINE None Seen /HPF (None Seen); RBC,URINE None Seen /HPF (0-2); SQUAMOUS EPITHELIAL CELL,UR None Seen /LPF (None Seen); WBC,URINE None Seen /HPF (0-5)
[2017-08-13] VITALS (11 sets, daily range): BP systolic 119–141; BP diastolic 76–94
[2017-08-13] MEDS ORDERED: LORazepam 2 MG TABLET PO PRN (07:00)
[2017-08-13] MEDS ORDERED: INSULIN GLARGINE,HUM.REC.ANLOG 100 UNITS/ML SQ ONE (08:15)
[2017-08-13] MEDS ORDERED: INSULIN LISPRO 100 UNITS/ML SQ ONE (08:15)
[2017-08-13] MEDS: LORazepam 2 MG TABLET PO SCH ×4 (08:53→20:31)
[2017-08-13] MEDS: THIAMINE HCL 100 MG TABLET PO SCH ×2 (08:53→16:55)
[2017-08-13] MEDS: FOLIC ACID 1 MG TABLET PO SCH (08:53)
[2017-08-13 08:57] LABS: GLUCOSE,POINT OF CARE 449 MG/DL (70-110)
[2017-08-13] MEDS: MULTIVITAMINS WITH MINERALS, THERAPEUTIC TABLET PO SCH (09:11)
[2017-08-13] MEDS ORDERED: DEXTROSE 50%-WATER 25 GM/50 ML SYRINGE IVP PRN (09:30)
[2017-08-13 09:48] LABS: GLUCOSE,POINT OF CARE 346 MG/DL (70-110)
[2017-08-13] MEDS: NICOTINE 21 MG/24 HOUR PATCH TD SCH (10:45)
[2017-08-13] MEDS: OMEPRAZOLE 20 MG CAPSULE PO SCH (10:45)
[2017-08-13] MEDS: INSULIN GLARGINE,HUM.REC.ANLOG 100 UNITS/ML SQ SCH ×2 (10:51→20:44)
[2017-08-13] MEDS: INSULIN LISPRO 100 UNITS/ML SQ SCH ×2 (11:07→16:52)
[2017-08-13] MEDS: INSULIN LISPRO 100 UNITS/ML SQ PRN ×2 (11:07→16:52)
[2017-08-13 11:13] LABS: GLUCOMETER DEV NAME(LOC) BV2N3; GLUCOSE,POINT OF CARE 242 MG/DL (70-110)
[2017-08-13] MEDS: TiZANidine HCL 4 MG TABLET PO SCH ×2 (13:00→16:57)
[2017-08-13] MEDS: TraMADol HCL 50 MG TABLET PO PRN (13:27)
[2017-08-13] MEDS ORDERED: PNEUMOCOCCAL VACCINE POLYVALENT 0.5 ML VIAL [PPSV23] IM ONE (13:45)
[2017-08-13] MEDS ORDERED: GLUCAGON,HUMAN RECOMBINANT 1 MG VIAL IM PRN (13:45)
[2017-08-13] MEDS: DUTASTERIDE 0.5 MG CAPSULE PO SCH (15:55)
[2017-08-13 16:33] LABS: GLUCOMETER DEV NAME(LOC) BV2N3; GLUCOSE,POINT OF CARE 406 MG/DL (70-110)
[2017-08-13] MEDS: MetFORMIN HCL 500 MG TABLET PO SCH (16:55)
[2017-08-13] MEDS: SIMVASTATIN 10 MG TABLET PO SCH (20:31)
[2017-08-13 21:07] LABS: GLUCOMETER DEV NAME(LOC) BV2N3; GLUCOSE,POINT OF CARE 140 MG/DL (70-110)
[2017-08-14] VITALS (7 sets, daily range): BP systolic 114–137; BP diastolic 67–90
[2017-08-14 06:10] LABS: GLUCOMETER DEV NAME(LOC) BV2N3; GLUCOSE,POINT OF CARE 126 MG/DL (70-110)
[2017-08-14] MEDS: INSULIN LISPRO 100 UNITS/ML SQ SCH ×3 (06:55→16:32)
[2017-08-14] MEDS: MetFORMIN HCL 500 MG TABLET PO SCH ×2 (06:55→16:27)
[2017-08-14] MEDS: LORazepam 2 MG TABLET PO SCH ×4 (08:43→20:51)
[2017-08-14] MEDS: OMEPRAZOLE 20 MG CAPSULE PO SCH (08:43)
[2017-08-14] MEDS: FOLIC ACID 1 MG TABLET PO SCH (08:43)
[2017-08-14] MEDS: DUTASTERIDE 0.5 MG CAPSULE PO SCH (08:43)
[2017-08-14] MEDS: TiZANidine HCL 4 MG TABLET PO SCH ×3 (08:43→16:26)
[2017-08-14] MEDS: THIAMINE HCL 100 MG TABLET PO SCH ×2 (08:43→16:26)
[2017-08-14] MEDS: MULTIVITAMINS WITH MINERALS, THERAPEUTIC TABLET PO SCH (08:43)
[2017-08-14] MEDS: POLYETHYLENE GLYCOL 3350 17 GM PACKET PO SCH (08:43)
[2017-08-14] MEDS: NICOTINE 21 MG/24 HOUR PATCH TD SCH (08:44)
[2017-08-14] MEDS: INSULIN GLARGINE,HUM.REC.ANLOG 100 UNITS/ML SQ SCH ×2 (08:58→21:00)
[2017-08-14 09:03] LABS: GLUCOMETER DEV NAME(LOC) BV2N3; GLUCOSE,POINT OF CARE 186 MG/DL (70-110)
[2017-08-14 11:08] LABS: GLUCOMETER DEV NAME(LOC) BV2N3; GLUCOSE,POINT OF CARE 120 MG/DL (70-110)
[2017-08-14] MEDS: VENLAFAXINE HCL 150 MG ER CAPSULE PO SCH (14:23)
[2017-08-14 16:18] LABS: GLUCOMETER DEV NAME(LOC) BV2N3; GLUCOSE,POINT OF CARE 112 MG/DL (70-110)
[2017-08-14] MEDS: SIMVASTATIN 10 MG TABLET PO SCH (20:51)
[2017-08-14] MEDS: TraMADol HCL 50 MG TABLET PO PRN (21:11)
[2017-08-14 21:25] LABS: GLUCOMETER DEV NAME(LOC) BV2N3; GLUCOSE,POINT OF CARE 120 MG/DL (70-110)
[2017-08-15 06:17] LABS: GLUCOMETER DEV NAME(LOC) BV2N3; GLUCOSE,POINT OF CARE 150 MG/DL (70-110)
[2017-08-15] MEDS: INSULIN LISPRO 100 UNITS/ML SQ SCH ×3 (06:56→16:38)
[2017-08-15] MEDS: MetFORMIN HCL 500 MG TABLET PO SCH ×2 (06:57→16:40)
[2017-08-15] MEDS: INSULIN LISPRO 100 UNITS/ML SQ PRN ×3 (06:59→20:43)
[2017-08-15] MEDS ORDERED: LORazepam 1 MG TABLET PO PRN (07:00)
[2017-08-15 07:15] VITALS: BP 138/79
[2017-08-15 07:17] VITALS: BP 138/79
[2017-08-15] MEDS: TraMADol HCL 50 MG TABLET PO PRN ×2 (07:30→21:16)
[2017-08-15 08:00] VITALS: BP 121/66
[2017-08-15] MEDS: VENLAFAXINE HCL 150 MG ER CAPSULE PO SCH (09:01)
[2017-08-15] MEDS: FOLIC ACID 1 MG TABLET PO SCH (09:01)
[2017-08-15] MEDS: DUTASTERIDE 0.5 MG CAPSULE PO SCH (09:01)
[2017-08-15] MEDS: NICOTINE 21 MG/24 HOUR PATCH TD SCH (09:01)
[2017-08-15] MEDS: THIAMINE HCL 100 MG TABLET PO SCH ×2 (09:01→16:39)
[2017-08-15] MEDS: MULTIVITAMINS WITH MINERALS, THERAPEUTIC TABLET PO SCH (09:01)
[2017-08-15] MEDS: POLYETHYLENE GLYCOL 3350 17 GM PACKET PO SCH (09:01)
[2017-08-15] MEDS: LORazepam 1 MG TABLET PO SCH ×4 (09:01→20:41)
[2017-08-15] MEDS: OMEPRAZOLE 20 MG CAPSULE PO SCH (09:01)
[2017-08-15] MEDS: TiZANidine HCL 4 MG TABLET PO SCH ×3 (09:01→16:40)
[2017-08-15] MEDS: INSULIN GLARGINE,HUM.REC.ANLOG 100 UNITS/ML SQ SCH ×2 (09:14→20:44)
[2017-08-15 09:18] LABS: GLUCOMETER DEV NAME(LOC) BV2N3; GLUCOSE,POINT OF CARE 188 MG/DL (70-110)
[2017-08-15 11:28] LABS: GLUCOMETER DEV NAME(LOC) BV2N3; GLUCOSE,POINT OF CARE 102 MG/DL (70-110)
[2017-08-15] MEDS ORDERED: MAGNESIUM CITRATE 300 ML ORAL SOLUTION PO ONE (13:45)
[2017-08-15 16:01] VITALS: BP 127/87
[2017-08-15 16:33] LABS: GLUCOMETER DEV NAME(LOC) BV2N3; GLUCOSE,POINT OF CARE 262 MG/DL (70-110)
[2017-08-15] MEDS: MUPIROCIN CALCIUM 2% 22 GM OINTMENT NASAL SCH (16:39)
[2017-08-15 18:11] VITALS: BP 127/81
[2017-08-15 20:38] LABS: GLUCOMETER DEV NAME(LOC) BV2N3; GLUCOSE,POINT OF CARE 219 MG/DL (70-110)
[2017-08-15] MEDS: SIMVASTATIN 10 MG TABLET PO SCH (20:41)
[2017-08-15 20:56] VITALS: BP 138/84
[2017-08-16 06:05] VITALS: BP 123/88
[2017-08-16 06:23] LABS: GLUCOMETER DEV NAME(LOC) BV2N3; GLUCOSE,POINT OF CARE 158 MG/DL (70-110)
[2017-08-16] MEDS: INSULIN LISPRO 100 UNITS/ML SQ SCH ×3 (06:33→16:39)
[2017-08-16] MEDS: INSULIN LISPRO 100 UNITS/ML SQ PRN ×4 (06:34→21:09)
[2017-08-16] MEDS: MetFORMIN HCL 500 MG TABLET PO SCH ×2 (06:47→16:54)
[2017-08-16] MEDS ORDERED: LORazepam 1 MG TABLET PO PRN (07:00)
[2017-08-16 08:08] VITALS: BP 128/99
[2017-08-16] MEDS: DUTASTERIDE 0.5 MG CAPSULE PO SCH (08:46)
[2017-08-16] MEDS: MULTIVITAMINS WITH MINERALS, THERAPEUTIC TABLET PO SCH (08:46)
[2017-08-16] MEDS: FOLIC ACID 1 MG TABLET PO SCH (08:46)
[2017-08-16] MEDS: OMEPRAZOLE 20 MG CAPSULE PO SCH (08:46)
[2017-08-16] MEDS: POLYETHYLENE GLYCOL 3350 17 GM PACKET PO SCH (08:47)
[2017-08-16] MEDS: VENLAFAXINE HCL 150 MG ER CAPSULE PO SCH (08:47)
[2017-08-16] MEDS: TiZANidine HCL 4 MG TABLET PO SCH ×3 (08:47→16:54)
[2017-08-16] MEDS: THIAMINE HCL 100 MG TABLET PO SCH ×2 (08:47→16:54)
[2017-08-16] MEDS: NICOTINE 21 MG/24 HOUR PATCH TD SCH (08:48)
[2017-08-16] MEDS: MUPIROCIN CALCIUM 2% 22 GM OINTMENT NASAL SCH ×2 (08:52→16:54)
[2017-08-16 09:03] VITALS: BP 128/99
[2017-08-16] MEDS: INSULIN GLARGINE,HUM.REC.ANLOG 100 UNITS/ML SQ SCH ×2 (09:03→21:09)
[2017-08-16 09:23] LABS: GLUCOMETER DEV NAME(LOC) BV2N3; GLUCOSE,POINT OF CARE 210 MG/DL (70-110)
[2017-08-16 11:18] LABS: GLUCOMETER DEV NAME(LOC) BV2N3; GLUCOSE,POINT OF CARE 237 MG/DL (70-110)
[2017-08-16 16:00] VITALS: BP 121/85
[2017-08-16 16:39] LABS: GLUCOMETER DEV NAME(LOC) BV2N3; GLUCOSE,POINT OF CARE 172 MG/DL (70-110)
[2017-08-16] MEDS: SIMVASTATIN 10 MG TABLET PO SCH (20:42)
[2017-08-16 21:04] LABS: GLUCOMETER DEV NAME(LOC) BV2N3; GLUCOSE,POINT OF CARE 189 MG/DL (70-110)
[2017-08-17 01:36] VITALS: BP 124/73
[2017-08-17 01:38] VITALS: BP 124/73
[2017-08-17 06:34] LABS: GLUCOMETER DEV NAME(LOC) BV2N3; GLUCOSE,POINT OF CARE 188 MG/DL (70-110)
[2017-08-17] MEDS: MetFORMIN HCL 500 MG TABLET PO SCH ×2 (07:02→17:15)
[2017-08-17] MEDS: INSULIN LISPRO 100 UNITS/ML SQ SCH ×3 (07:03→16:36)
[2017-08-17] MEDS: INSULIN LISPRO 100 UNITS/ML SQ PRN ×3 (07:08→20:36)
[2017-08-17 08:21] VITALS: BP 138/72
[2017-08-17] MEDS: THIAMINE HCL 100 MG TABLET PO SCH ×2 (09:08→17:14)
[2017-08-17] MEDS: OMEPRAZOLE 20 MG CAPSULE PO SCH (09:08)
[2017-08-17] MEDS: MULTIVITAMINS WITH MINERALS, THERAPEUTIC TABLET PO SCH (09:08)
[2017-08-17] MEDS: DUTASTERIDE 0.5 MG CAPSULE PO SCH (09:08)
[2017-08-17] MEDS: FOLIC ACID 1 MG TABLET PO SCH (09:08)
[2017-08-17] MEDS: TiZANidine HCL 4 MG TABLET PO SCH ×3 (09:09→17:14)
[2017-08-17] MEDS: NICOTINE 21 MG/24 HOUR PATCH TD SCH (09:10)
[2017-08-17] MEDS: VENLAFAXINE HCL 150 MG ER CAPSULE PO SCH (09:11)
[2017-08-17] MEDS: MUPIROCIN CALCIUM 2% 22 GM OINTMENT NASAL SCH ×2 (09:11→17:15)
[2017-08-17] MEDS: POLYETHYLENE GLYCOL 3350 17 GM PACKET PO SCH (09:14)
[2017-08-17] MEDS: INSULIN GLARGINE,HUM.REC.ANLOG 100 UNITS/ML SQ SCH ×2 (09:27→20:36)
[2017-08-17 09:33] LABS: GLUCOMETER DEV NAME(LOC) BV2N3; GLUCOSE,POINT OF CARE 141 MG/DL (70-110)
[2017-08-17 11:21] VITALS: BP 138/72
[2017-08-17 11:28] LABS: GLUCOMETER DEV NAME(LOC) BV2N3; GLUCOSE,POINT OF CARE 127 MG/DL (70-110)
[2017-08-17 16:01] VITALS: BP 122/84
[2017-08-17 16:37] LABS: GLUCOMETER DEV NAME(LOC) BV2N3; GLUCOSE,POINT OF CARE 201 MG/DL (70-110)
[2017-08-17] MEDS: SIMVASTATIN 10 MG TABLET PO SCH (20:24)
[2017-08-17 20:29] VITALS: BP 118/78
[2017-08-17] MEDS: TraMADol HCL 50 MG TABLET PO PRN (20:29)
[2017-08-17 21:03] LABS: GLUCOMETER DEV NAME(LOC) BV2N3; GLUCOSE,POINT OF CARE 203 MG/DL (70-110)
[2017-08-18 02:52] VITALS: BP 126/80
[2017-08-18 02:56] VITALS: BP 126/80
[2017-08-18 06:17] LABS: GLUCOMETER DEV NAME(LOC) BV2N3; GLUCOSE,POINT OF CARE 87 MG/DL (70-110)
[2017-08-18] MEDS: INSULIN LISPRO 100 UNITS/ML SQ SCH ×3 (06:44→16:33)
[2017-08-18] MEDS: MetFORMIN HCL 500 MG TABLET PO SCH ×2 (06:46→16:24)
[2017-08-18 08:18] VITALS: BP 115/71
[2017-08-18] MEDS: POLYETHYLENE GLYCOL 3350 17 GM PACKET PO SCH (08:22)
[2017-08-18] MEDS: MULTIVITAMINS WITH MINERALS, THERAPEUTIC TABLET PO SCH (08:22)
[2017-08-18] MEDS: OMEPRAZOLE 20 MG CAPSULE PO SCH (08:22)
[2017-08-18] MEDS: VENLAFAXINE HCL 150 MG ER CAPSULE PO SCH (08:22)
[2017-08-18] MEDS: FOLIC ACID 1 MG TABLET PO SCH (08:23)
[2017-08-18] MEDS: THIAMINE HCL 100 MG TABLET PO SCH ×2 (08:23→16:23)
[2017-08-18] MEDS: DUTASTERIDE 0.5 MG CAPSULE PO SCH (08:23)
[2017-08-18] MEDS: NICOTINE 21 MG/24 HOUR PATCH TD SCH (08:23)
[2017-08-18] MEDS: TiZANidine HCL 4 MG TABLET PO SCH ×3 (08:23→16:35)
[2017-08-18] MEDS: MUPIROCIN CALCIUM 2% 22 GM OINTMENT NASAL SCH ×2 (08:35→16:24)
[2017-08-18] MEDS: INSULIN GLARGINE,HUM.REC.ANLOG 100 UNITS/ML SQ SCH ×2 (08:37→20:30)
[2017-08-18 08:43] LABS: GLUCOMETER DEV NAME(LOC) BV2N3; GLUCOSE,POINT OF CARE 359 MG/DL (70-110)
[2017-08-18] MEDS ORDERED: SIMV10TA2 PO (10:57)
[2017-08-18] MEDS ORDERED: MIRALAX PO (11:00)
[2017-08-18] MEDS: INSULIN LISPRO 100 UNITS/ML SQ PRN ×3 (11:03→20:37)
[2017-08-18 11:12] LABS: GLUCOMETER DEV NAME(LOC) BV2N3; GLUCOSE,POINT OF CARE 186 MG/DL (70-110)
[2017-08-18 13:05] VITALS: BP 118/74
[2017-08-18] MEDS: TraMADol HCL 50 MG TABLET PO PRN (13:05)
[2017-08-18 16:01] VITALS: BP 120/83
[2017-08-18] MEDS ORDERED: MAGNESIUM CITRATE 300 ML ORAL SOLUTION PO ONE (16:15)
[2017-08-18 16:28] LABS: GLUCOMETER DEV NAME(LOC) BV2N3; GLUCOSE,POINT OF CARE 144 MG/DL (70-110)
[2017-08-18] MEDS: SIMVASTATIN 10 MG TABLET PO SCH (20:22)
[2017-08-18 20:52] LABS: GLUCOMETER DEV NAME(LOC) BV2N3; GLUCOSE,POINT OF CARE 160 MG/DL (70-110)
[2017-08-19 00:01] VITALS: BP 116/86
[2017-08-19 06:18] LABS: GLUCOMETER DEV NAME(LOC) BV2N3; GLUCOSE,POINT OF CARE 103 MG/DL (70-110)
[2017-08-19] MEDS: INSULIN LISPRO 100 UNITS/ML SQ SCH ×3 (06:30→16:19)
[2017-08-19] MEDS: MetFORMIN HCL 500 MG TABLET PO SCH ×2 (07:17→16:14)
[2017-08-19 08:30] VITALS: BP 130/81
[2017-08-19] MEDS: FOLIC ACID 1 MG TABLET PO SCH (08:34)
[2017-08-19] MEDS: THIAMINE HCL 100 MG TABLET PO SCH ×2 (08:34→16:14)
[2017-08-19] MEDS: DUTASTERIDE 0.5 MG CAPSULE PO SCH (08:34)
[2017-08-19] MEDS: OMEPRAZOLE 20 MG CAPSULE PO SCH (08:34)
[2017-08-19] MEDS: TiZANidine HCL 4 MG TABLET PO SCH ×3 (08:35→16:14)
[2017-08-19] MEDS: MULTIVITAMINS WITH MINERALS, THERAPEUTIC TABLET PO SCH (08:35)
[2017-08-19] MEDS: VENLAFAXINE HCL 75 MG ER CAPSULE PO SCH (08:35)
[2017-08-19] MEDS: NICOTINE 21 MG/24 HOUR PATCH TD SCH (08:43)
[2017-08-19] MEDS: INSULIN GLARGINE,HUM.REC.ANLOG 100 UNITS/ML SQ SCH ×2 (08:45→20:25)
[2017-08-19] MEDS: POLYETHYLENE GLYCOL 3350 17 GM PACKET PO SCH (08:57)
[2017-08-19] MEDS: MUPIROCIN CALCIUM 2% 22 GM OINTMENT NASAL SCH ×2 (08:57→16:15)
[2017-08-19 09:08] LABS: GLUCOMETER DEV NAME(LOC) BV2N3; GLUCOSE,POINT OF CARE 350 MG/DL (70-110)
[2017-08-19] MEDS: INSULIN LISPRO 100 UNITS/ML SQ PRN ×2 (11:06→16:20)
[2017-08-19 11:13] LABS: GLUCOMETER DEV NAME(LOC) BV2N3; GLUCOSE,POINT OF CARE 357 MG/DL (70-110)
[2017-08-19 16:03] VITALS: BP 133/74
[2017-08-19 16:38] LABS: GLUCOMETER DEV NAME(LOC) BV2N3; GLUCOSE,POINT OF CARE 149 MG/DL (70-110)
[2017-08-19] MEDS: SIMVASTATIN 10 MG TABLET PO SCH (20:20)
[2017-08-19 20:25] VITALS: BP 128/87
[2017-08-19] MEDS: TraMADol HCL 50 MG TABLET PO PRN (20:25)
[2017-08-19 20:38] LABS: GLUCOMETER DEV NAME(LOC) BV2N3; GLUCOSE,POINT OF CARE 122 MG/DL (70-110)
[2017-08-20 00:29] VITALS: BP 128/80
[2017-08-20 06:18] LABS: GLUCOMETER DEV NAME(LOC) BV2N3; GLUCOSE,POINT OF CARE 148 MG/DL (70-110)
[2017-08-20] MEDS: INSULIN LISPRO 100 UNITS/ML SQ SCH ×2 (06:19→11:09)
[2017-08-20] MEDS: MetFORMIN HCL 500 MG TABLET PO SCH (07:19)
[2017-08-20 08:27] VITALS: BP 120/75
[2017-08-20] MEDS: FOLIC ACID 1 MG TABLET PO SCH (08:29)
[2017-08-20] MEDS: OMEPRAZOLE 20 MG CAPSULE PO SCH (08:29)
[2017-08-20] MEDS: THIAMINE HCL 100 MG TABLET PO SCH (08:29)
[2017-08-20] MEDS: POLYETHYLENE GLYCOL 3350 17 GM PACKET PO SCH (08:30)
[2017-08-20] MEDS: TiZANidine HCL 4 MG TABLET PO SCH ×2 (08:30→12:18)
[2017-08-20] MEDS: MULTIVITAMINS WITH MINERALS, THERAPEUTIC TABLET PO SCH (08:30)
[2017-08-20] MEDS: NICOTINE 21 MG/24 HOUR PATCH TD SCH (08:30)
[2017-08-20] MEDS: VENLAFAXINE HCL 75 MG ER CAPSULE PO SCH (08:30)
[2017-08-20] MEDS: DUTASTERIDE 0.5 MG CAPSULE PO SCH (08:30)
[2017-08-20] MEDS: MUPIROCIN CALCIUM 2% 22 GM OINTMENT NASAL SCH (08:30)
[2017-08-20] MEDS: INSULIN GLARGINE,HUM.REC.ANLOG 100 UNITS/ML SQ SCH (08:42)
[2017-08-20 08:58] LABS: GLUCOMETER DEV NAME(LOC) BV2N3; GLUCOSE,POINT OF CARE 226 MG/DL (70-110)
[2017-08-20] MEDS ORDERED: MIRALAX PO (09:27)
[2017-08-20 11:07] VITALS: BP 116/74
[2017-08-20] MEDS: TraMADol HCL 50 MG TABLET PO PRN (11:07)
[2017-08-20 11:18] LABS: GLUCOMETER DEV NAME(LOC) BV2N3; GLUCOSE,POINT OF CARE 120 MG/DL (70-110)
== END 2017-08-20 15:15 | disposition home or self-care (01) | DRG 885 ==
LOC: EMS 18:27 → B2X 08-13 05:52
PROVIDERS: ADMIT Psychiatry & Neurology Child & Adolescent Psychiatry; ATTEND Psychiatry & Neurology Child & Adolescent Psychiatry
DX: F33.2 Major depressive disorder, recurrent severe without psychotic features (principal); R45.851 Suicidal ideations; Y90.8 Blood alcohol level of 240 mg/100 ml or more; K59.00 Constipation, unspecified; I10 Essential (primary) hypertension; F90.9 Attention-deficit hyperactivity disorder, unspecified type; F12.10 Cannabis abuse, uncomplicated; E78.5 Hyperlipidemia, unspecified; E11.65 Type 2 diabetes mellitus with hyperglycemia; G47.00 Insomnia, unspecified; R33.9 Retention of urine, unspecified; F10.229 Alcohol dependence with intoxication, unspecified; F11.10 Opioid abuse, uncomplicated; F41.9 Anxiety disorder, unspecified; Z88.0 Allergy status to penicillin; Z88.6 Allergy status to analgesic agent; Z79.4 Long term (current) use of insulin; Z79.899 Other long term (current) drug therapy; Z87.820 Personal history of traumatic brain injury
CPT/HCPCS: 83036; 87081; 90471; 96372; 99285; G0480; J1815; J3420

== ENCOUNTER 2017-09-07 20:07 | Inpatient (IN) | payer MEDICARE, MEDICAID ==
[~2017-09-07] VITALS: Ht 172.7 cm; Wt 81.8 kg
[~2017-09-07 20:07] MED LIST changes: -DSS100 PO; -OMEP20 PO; -SIMV-259 PO; +SIMV10TA2 PO; -TIZA4TAB4 PO; -VENL150C2 PO
[2017-09-07] MEDS ORDERED: HALOPERIDOL 5 MG TABLET PO PRN (21:00)
[2017-09-07] MEDS ORDERED: ZOLPIDEM TARTRATE 10 MG TABLET PO PRN (21:00)
[2017-09-07 21:30] VITALS: BP 131/79
[2017-09-07] MEDS ORDERED: INSULIN LISPRO 100 UNITS/ML SQ PRN (21:45)
[2017-09-07] MEDS ORDERED: DEXTROSE 50%-WATER 25 GM/50 ML SYRINGE IVP PRN (21:45)
[2017-09-07 21:58] LABS: GLUCOMETER DEV NAME(LOC) BV2N3; GLUCOSE,POINT OF CARE 513 MG/DL (70-110)
[2017-09-07] MEDS ORDERED: GLUCAGON,HUMAN RECOMBINANT 1 MG VIAL IM PRN (22:00)
[2017-09-07] MEDS ORDERED: INSULIN LISPRO 100 UNITS/ML SQ ONE ×2 (22:00→23:00)
[2017-09-07 22:30] VITALS: BP 139/77
[2017-09-07 22:49] LABS: GLUCOMETER DEV NAME(LOC) BV2N3; GLUCOSE,POINT OF CARE 456 MG/DL (70-110)
[2017-09-07 23:30] VITALS: BP 124/83
[2017-09-08] VITALS (13 sets, daily range): BP systolic 117–161; BP diastolic 76–100
[2017-09-08] MEDS ORDERED: -PHARMACY VACCINE NOTE- MISC ONE (00:15)
[2017-09-08] MEDS ORDERED: INSULIN LISPRO 100 UNITS/ML SQ ONE ×3 (00:30→13:00)
[2017-09-08 00:39] LABS: GLUCOMETER DEV NAME(LOC) BV2N3; GLUCOSE,POINT OF CARE 377 MG/DL (70-110)
[2017-09-08 01:44] LABS: GLUCOMETER DEV NAME(LOC) BV2N3; GLUCOSE,POINT OF CARE 269 MG/DL (70-110)
[2017-09-08] MEDS: TraMADol HCL 50 MG TABLET PO PRN ×2 (05:33→16:42)
[2017-09-08] MEDS: INSULIN LISPRO 100 UNITS/ML SQ PRN ×3 (06:16→20:30)
[2017-09-08] MEDS: MetFORMIN HCL 500 MG TABLET PO SCH ×2 (06:18→16:22)
[2017-09-08 06:23] LABS: GLUCOMETER DEV NAME(LOC) BV2N3; GLUCOSE,POINT OF CARE 243 MG/DL (70-110)
[2017-09-08 07:45] LABS: BASOPHILS % (AUTO) 0.5 % (0.0-2.0); EOSINOPHILS % (AUTO) 1.1 % (1.0-6.0); HEMATOCRIT 44.1 % (41-53); HEMOGLOBIN 15.7 g/dL (13.5-17.5); LYMPHOCYTES # (AUTO) 2.2 K/uL (1.0-4.8); LYMPHOCYTES % (AUTO) 37.2 % (22.0-44.0); MEAN CORPUSCULAR HEMOGLOBIN 32.7 pg (26.0-34.0); MEAN CORPUSCULAR HGB CONC 35.6 G/dL (31.0-37.0); MEAN CORPUSCULAR VOLUME 92 fL (80-100); MONOCYTES # (AUTO) 0.8 K/uL (0.1-1.0); MONOCYTES % (AUTO) 13.3 % (2.0-9.0); NEUTROPHILS # (AUTO) 2.8 K/uL (1.8-7.7); NEUTROPHILS % (AUTO) 47.9 % (40.0-70.0); PLATELET COUNT (AUTO) 213 K/uL (150-450); RED BLOOD CELL COUNT(AUTO) 4.81 MIL/uL (4.50-5.90)
[2017-09-08 08:07] LABS: HEMOGLOBIN A1C 9.9 % (4.5-6.2)
[2017-09-08 08:11] LABS: ALANINE AMINOTRANSFERASE 66 U/L (12-78); ALBUMIN 4.4 g/dL (3.4-5.0); ALKALINE PHOSPHATASE 114 U/L (46-116); ANION GAP 6 mmol/L (8-16); ASPARTATE AMINOTRANSFERASE 41 U/L (15-37); BILIRUBIN,TOTAL 0.8 mg/dL (0.1-1.0); CALCIUM, TOTAL 9.2 mg/dL (8.8-10.5); CARBON DIOXIDE 34 mmol/L (22-29); CHLORIDE 95 mmol/L (98-107); CHOL/HDL RATIO 4.6 (4.2-7.3); CHOLESTEROL 310 mg/dL (131-200); CREATININE 0.95 mg/dL (0.60-1.30); FREE T4 (FREE THYROXINE) 0.91 ng/dL (0.76-1.46); GLOMERULAR FILTR. RATE CALC > 60 mL/min (>60); GLUCOSE,RANDOM 209 mg/dL (70-110); HDL CHOLESTEROL 67 mg/dL (40-60); LDL CHOL (CALC.) 193 mg/dL (0-130); POTASSIUM 3.3 mmol/L (3.5-5.1); SODIUM SERUM 135 mmol/L (136-145); THYROID STIMULATING HORMONE 3.44 uIU/mL (0.36-3.74); TRIGLYCERIDES 252 mg/dL (15-150); UREA NITROGEN, BLOOD 9 mg/dL (7-18)
[2017-09-08] MEDS: MUPIROCIN CALCIUM 2% 22 GM OINTMENT NASAL SCH ×2 (08:23→16:21)
[2017-09-08] MEDS: LORazepam 2 MG TABLET PO PRN ×2 (08:23→21:36)
[2017-09-08] MEDS: VENLAFAXINE HCL 75 MG ER CAPSULE PO SCH (10:45)
[2017-09-08] MEDS ORDERED: POTASSIUM CHLORIDE 20 MEQ ER TABLET PO ONE (10:45)
[2017-09-08 11:44] LABS: GLUCOMETER DEV NAME(LOC) BV2N3; GLUCOSE,POINT OF CARE 462 MG/DL (70-110)
[2017-09-08] MEDS ORDERED: ONDANSETRON HCL 4 MG TABLET PO PRN (11:45)
[2017-09-08] MEDS ORDERED: MAGNESIUM HYDROXIDE SUSPENSION 30 ML UDCUP PO PRN (11:45)
[2017-09-08] MEDS ORDERED: PETROLATUM,WHITE 71 GM JELLY TP PRN (11:45)
[2017-09-08] MEDS ORDERED: GLUCAGON,HUMAN RECOMBINANT 1 MG VIAL IM PRN (11:45)
[2017-09-08] MEDS ORDERED: ALBUTEROL SULFATE HFA 90 MCG/PUFF 8 GM INHALER IH PRN (11:45)
[2017-09-08] MEDS ORDERED: MAG HYDROX/AL HYDROX/SIMETH ES 30 ML SUSPENSION UDCUP PO PRN (11:45)
[2017-09-08] MEDS ORDERED: CloNIDine HCL 0.1 MG TABLET PO PRN (11:45)
[2017-09-08] MEDS ORDERED: DOCUSATE SODIUM 100 MG CAPSULE PO PRN (11:45)
[2017-09-08] MEDS ORDERED: TraMADol HCL 50 MG TABLET PO PRN (11:45)
[2017-09-08 12:48] LABS: GLUCOMETER DEV NAME(LOC) BV2N3; GLUCOSE,POINT OF CARE 378 MG/DL (70-110)
[2017-09-08 16:44] LABS: GLUCOMETER DEV NAME(LOC) BV2N3; GLUCOSE,POINT OF CARE 182 MG/DL (70-110)
[2017-09-08] MEDS ORDERED: MetFORMIN HCL 500 MG TABLET PO SCH (17:00)
[2017-09-08] MEDS: SIMVASTATIN 10 MG TABLET PO SCH (20:22)
[2017-09-08] MEDS: INSULIN GLARGINE,HUM.REC.ANLOG 100 UNITS/ML SQ SCH (20:23)
[2017-09-08 20:49] LABS: GLUCOMETER DEV NAME(LOC) BV2N3; GLUCOSE,POINT OF CARE 337 MG/DL (70-110)
[2017-09-08] MEDS ORDERED: SIMVASTATIN 40 MG TABLET PO SCH (21:00)
[2017-09-09 00:10] VITALS: BP 142/98
[2017-09-09 00:35] VITALS: BP 141/98
[2017-09-09] MEDS: MetFORMIN HCL 500 MG TABLET PO SCH ×2 (06:36→17:02)
[2017-09-09 06:39] LABS: GLUCOMETER DEV NAME(LOC) BV2N3; GLUCOSE,POINT OF CARE 255 MG/DL (70-110)
[2017-09-09] MEDS: INSULIN LISPRO 100 UNITS/ML SQ PRN ×4 (06:50→20:32)
[2017-09-09 07:29] VITALS: BP 138/98
[2017-09-09 08:07] VITALS: BP 124/79
[2017-09-09] MEDS: POLYETHYLENE GLYCOL 3350 17 GM PACKET PO SCH (08:07)
[2017-09-09] MEDS: DUTASTERIDE 0.5 MG CAPSULE PO SCH (08:08)
[2017-09-09] MEDS: VENLAFAXINE HCL 75 MG ER CAPSULE PO SCH (08:08)
[2017-09-09] MEDS: MUPIROCIN CALCIUM 2% 22 GM OINTMENT NASAL SCH ×2 (08:09→17:02)
[2017-09-09] MEDS: NICOTINE 14 MG/24 HOUR PATCH TD SCH (08:09)
[2017-09-09 08:10] VITALS: BP 124/79
[2017-09-09] MEDS: INSULIN GLARGINE,HUM.REC.ANLOG 100 UNITS/ML SQ SCH ×2 (08:19→20:32)
[2017-09-09 08:23] LABS: GLUCOMETER DEV NAME(LOC) BV2N3; GLUCOSE,POINT OF CARE 386 MG/DL (70-110)
[2017-09-09 08:24] LABS: HEMOGLOBIN A1C 9.6 % (4.5-6.2)
[2017-09-09 08:41] LABS: ANION GAP 9 mmol/L (8-16); CALCIUM, TOTAL 8.8 mg/dL (8.8-10.5); CARBON DIOXIDE 31 mmol/L (22-29); CHLORIDE 98 mmol/L (98-107); CHOL/HDL RATIO 3.8 (4.2-7.3); CHOLESTEROL 271 mg/dL (131-200); CREATININE 0.84 mg/dL (0.60-1.30); GLOMERULAR FILTR. RATE CALC > 60 mL/min (>60); GLUCOSE,RANDOM 241 mg/dL (70-110); HDL CHOLESTEROL 71 mg/dL (40-60); LDL CHOL (CALC.) 175 mg/dL (0-130); POTASSIUM 4.1 mmol/L (3.5-5.1); SODIUM SERUM 138 mmol/L (136-145); THYROID STIMULATING HORMONE 1.45 uIU/mL (0.36-3.74); TRIGLYCERIDES 123 mg/dL (15-150); UREA NITROGEN, BLOOD 12 mg/dL (7-18)
[2017-09-09 11:18] LABS: GLUCOMETER DEV NAME(LOC) BV2N3; GLUCOSE,POINT OF CARE 245 MG/DL (70-110)
[2017-09-09 16:01] VITALS: BP 117/73
[2017-09-09 16:49] LABS: GLUCOMETER DEV NAME(LOC) BV2N3; GLUCOSE,POINT OF CARE 282 MG/DL (70-110)
[2017-09-09] MEDS: SIMVASTATIN 10 MG TABLET PO SCH (20:25)
[2017-09-09 20:39] LABS: GLUCOMETER DEV NAME(LOC) BV2N3; GLUCOSE,POINT OF CARE 313 MG/DL (70-110)
[2017-09-10 00:45] VITALS: BP 123/80
[2017-09-10 00:46] VITALS: BP 123/80
[2017-09-10 06:29] LABS: GLUCOMETER DEV NAME(LOC) BV2N3; GLUCOSE,POINT OF CARE 136 MG/DL (70-110)
[2017-09-10] MEDS: MetFORMIN HCL 500 MG TABLET PO SCH ×2 (07:11→16:37)
[2017-09-10 08:00] VITALS: BP 126/89
[2017-09-10] MEDS: DUTASTERIDE 0.5 MG CAPSULE PO SCH (08:14)
[2017-09-10] MEDS: POLYETHYLENE GLYCOL 3350 17 GM PACKET PO SCH (08:14)
[2017-09-10] MEDS: NICOTINE 14 MG/24 HOUR PATCH TD SCH (08:14)
[2017-09-10] MEDS: VENLAFAXINE HCL 75 MG ER CAPSULE PO SCH (08:14)
[2017-09-10 08:16] VITALS: BP 126/89
[2017-09-10] MEDS: MUPIROCIN CALCIUM 2% 22 GM OINTMENT NASAL SCH ×2 (08:17→16:36)
[2017-09-10] MEDS: INSULIN GLARGINE,HUM.REC.ANLOG 100 UNITS/ML SQ SCH ×2 (08:35→20:36)
[2017-09-10 08:59] LABS: GLUCOMETER DEV NAME(LOC) BV2N3; GLUCOSE,POINT OF CARE 386 MG/DL (70-110)
[2017-09-10] MEDS: INSULIN LISPRO 100 UNITS/ML SQ PRN ×3 (11:08→20:36)
[2017-09-10 11:18] LABS: GLUCOMETER DEV NAME(LOC) BV2N3; GLUCOSE,POINT OF CARE 266 MG/DL (70-110)
[2017-09-10 16:22] VITALS: BP 123/69
[2017-09-10 16:29] LABS: GLUCOMETER DEV NAME(LOC) BV2N3; GLUCOSE,POINT OF CARE 288 MG/DL (70-110)
[2017-09-10 20:19] LABS: GLUCOMETER DEV NAME(LOC) BV2N3; GLUCOSE,POINT OF CARE 159 MG/DL (70-110)
[2017-09-10] MEDS: SIMVASTATIN 10 MG TABLET PO SCH (20:33)
[2017-09-11 04:48] VITALS: BP_SYST 113; BP_SYST 13; BP_DIAS 83
[2017-09-11 06:18] LABS: GLUCOMETER DEV NAME(LOC) BV2N3; GLUCOSE,POINT OF CARE 94 MG/DL (70-110)
[2017-09-11] MEDS: MetFORMIN HCL 500 MG TABLET PO SCH ×2 (07:03→16:31)
[2017-09-11 08:00] VITALS: BP 136/79
[2017-09-11 08:16] VITALS: BP 136/79
[2017-09-11] MEDS: DUTASTERIDE 0.5 MG CAPSULE PO SCH (08:45)
[2017-09-11] MEDS: MUPIROCIN CALCIUM 2% 22 GM OINTMENT NASAL SCH ×2 (08:45→16:30)
[2017-09-11] MEDS: VENLAFAXINE HCL 75 MG ER CAPSULE PO SCH (08:45)
[2017-09-11] MEDS: INSULIN GLARGINE,HUM.REC.ANLOG 100 UNITS/ML SQ SCH ×2 (08:59→20:16)
[2017-09-11] MEDS: POLYETHYLENE GLYCOL 3350 17 GM PACKET PO SCH (09:00)
[2017-09-11] MEDS: NICOTINE 14 MG/24 HOUR PATCH TD SCH (09:08)
[2017-09-11 09:09] LABS: GLUCOMETER DEV NAME(LOC) BV2N3; GLUCOSE,POINT OF CARE 339 MG/DL (70-110)
[2017-09-11] MEDS: INSULIN LISPRO 100 UNITS/ML SQ PRN ×3 (11:24→20:16)
[2017-09-11 11:39] LABS: GLUCOMETER DEV NAME(LOC) BV2N3; GLUCOSE,POINT OF CARE 238 MG/DL (70-110)
[2017-09-11] MEDS ORDERED: MAGNESIUM CITRATE 300 ML ORAL SOLUTION PO PRN (15:15)
[2017-09-11 16:06] VITALS: BP 137/84
[2017-09-11 16:13] LABS: GLUCOMETER DEV NAME(LOC) BV2N3; GLUCOSE,POINT OF CARE 195 MG/DL (70-110)
[2017-09-11] MEDS: SIMVASTATIN 10 MG TABLET PO SCH (20:17)
[2017-09-11 20:33] LABS: GLUCOMETER DEV NAME(LOC) BV2N3; GLUCOSE,POINT OF CARE 232 MG/DL (70-110)
[2017-09-12 00:10] VITALS: BP 123/86
[2017-09-12 06:40] LABS: GLUCOMETER DEV NAME(LOC) BV2N3; GLUCOSE,POINT OF CARE 101 MG/DL (70-110)
[2017-09-12] MEDS: MetFORMIN HCL 500 MG TABLET PO SCH ×2 (07:08→16:33)
[2017-09-12 08:01] VITALS: BP 120/84
[2017-09-12] MEDS: DUTASTERIDE 0.5 MG CAPSULE PO SCH (08:22)
[2017-09-12] MEDS: VENLAFAXINE HCL 75 MG ER CAPSULE PO SCH (08:22)
[2017-09-12] MEDS: NICOTINE 14 MG/24 HOUR PATCH TD SCH (08:23)
[2017-09-12] MEDS: POLYETHYLENE GLYCOL 3350 17 GM PACKET PO SCH (08:23)
[2017-09-12] MEDS: MUPIROCIN CALCIUM 2% 22 GM OINTMENT NASAL SCH ×2 (08:24→16:33)
[2017-09-12] MEDS: INSULIN GLARGINE,HUM.REC.ANLOG 100 UNITS/ML SQ SCH ×2 (08:34→20:48)
[2017-09-12 08:48] LABS: GLUCOMETER DEV NAME(LOC) BV2N3; GLUCOSE,POINT OF CARE 281 MG/DL (70-110)
[2017-09-12] MEDS: DOCUSATE SODIUM 100 MG CAPSULE PO SCH ×2 (09:31→16:33)
[2017-09-12] MEDS: MAGNESIUM CITRATE 300 ML ORAL SOLUTION PO PRN (10:38)
[2017-09-12 11:18] LABS: GLUCOMETER DEV NAME(LOC) BV2N3; GLUCOSE,POINT OF CARE 126 MG/DL (70-110)
[2017-09-12 16:06] VITALS: BP 125/86
[2017-09-12 16:10] VITALS: BP 125/86
[2017-09-12 16:29] LABS: GLUCOMETER DEV NAME(LOC) BV2N3; GLUCOSE,POINT OF CARE 150 MG/DL (70-110)
[2017-09-12] MEDS: INSULIN LISPRO 100 UNITS/ML SQ PRN ×2 (17:48→20:47)
[2017-09-12 20:19] LABS: GLUCOMETER DEV NAME(LOC) BV2N3; GLUCOSE,POINT OF CARE 144 MG/DL (70-110)
[2017-09-12] MEDS: SIMVASTATIN 10 MG TABLET PO SCH (20:39)
[2017-09-13 05:42] VITALS: BP 121/78
[2017-09-13 06:16] VITALS: BP 115/68
[2017-09-13] MEDS: TraMADol HCL 50 MG TABLET PO PRN (06:17)
[2017-09-13] MEDS: MetFORMIN HCL 500 MG TABLET PO SCH ×2 (06:23→16:32)
[2017-09-13] MEDS: INSULIN LISPRO 100 UNITS/ML SQ PRN ×3 (06:24→20:36)
[2017-09-13 06:29] LABS: GLUCOMETER DEV NAME(LOC) BV2N3; GLUCOSE,POINT OF CARE 261 MG/DL (70-110)
[2017-09-13] MEDS: VENLAFAXINE HCL 75 MG ER CAPSULE PO SCH (08:07)
[2017-09-13] MEDS: DOCUSATE SODIUM 100 MG CAPSULE PO SCH ×2 (08:07→16:32)
[2017-09-13] MEDS: POLYETHYLENE GLYCOL 3350 17 GM PACKET PO SCH (08:07)
[2017-09-13] MEDS: DUTASTERIDE 0.5 MG CAPSULE PO SCH (08:07)
[2017-09-13] MEDS: NICOTINE 14 MG/24 HOUR PATCH TD SCH (08:08)
[2017-09-13] MEDS: INSULIN GLARGINE,HUM.REC.ANLOG 100 UNITS/ML SQ SCH ×2 (08:10→20:36)
[2017-09-13 08:14] LABS: GLUCOMETER DEV NAME(LOC) BV2N3; GLUCOSE,POINT OF CARE 213 MG/DL (70-110)
[2017-09-13 08:34] VITALS: BP 136/88
[2017-09-13 11:39] LABS: GLUCOMETER DEV NAME(LOC) BV2N3; GLUCOSE,POINT OF CARE 108 MG/DL (70-110)
[2017-09-13 16:07] VITALS: BP 133/79
[2017-09-13 16:29] LABS: GLUCOMETER DEV NAME(LOC) BV2N3; GLUCOSE,POINT OF CARE 182 MG/DL (70-110)
[2017-09-13 20:19] LABS: GLUCOMETER DEV NAME(LOC) BV2N3; GLUCOSE,POINT OF CARE 230 MG/DL (70-110)
[2017-09-13] MEDS: SIMVASTATIN 10 MG TABLET PO SCH (20:32)
[2017-09-14 00:19] VITALS: BP 132/85
[2017-09-14] MEDS: INSULIN LISPRO 100 UNITS/ML SQ PRN ×3 (06:43→16:47)
[2017-09-14 06:44] LABS: GLUCOMETER DEV NAME(LOC) BV2N3; GLUCOSE,POINT OF CARE 165 MG/DL (70-110)
[2017-09-14] MEDS: TraMADol HCL 50 MG TABLET PO PRN ×2 (06:44→16:04)
[2017-09-14] MEDS: MetFORMIN HCL 500 MG TABLET PO SCH ×2 (06:44→17:06)
[2017-09-14 08:01] VITALS: BP 123/84
[2017-09-14] MEDS: DOCUSATE SODIUM 100 MG CAPSULE PO SCH ×2 (08:25→17:07)
[2017-09-14] MEDS: POLYETHYLENE GLYCOL 3350 17 GM PACKET PO SCH (08:25)
[2017-09-14] MEDS: NICOTINE 14 MG/24 HOUR PATCH TD SCH (08:25)
[2017-09-14] MEDS: DUTASTERIDE 0.5 MG CAPSULE PO SCH (08:25)
[2017-09-14] MEDS: VENLAFAXINE HCL 75 MG ER CAPSULE PO SCH (08:25)
[2017-09-14] MEDS: INSULIN GLARGINE,HUM.REC.ANLOG 100 UNITS/ML SQ SCH ×2 (08:36→20:46)
[2017-09-14 08:39] LABS: GLUCOMETER DEV NAME(LOC) BV2N3; GLUCOSE,POINT OF CARE 301 MG/DL (70-110)
[2017-09-14 11:13] LABS: GLUCOMETER DEV NAME(LOC) BV2N3; GLUCOSE,POINT OF CARE 267 MG/DL (70-110)
[2017-09-14] MEDS: MAGNESIUM CITRATE 300 ML ORAL SOLUTION PO PRN (12:00)
[2017-09-14 16:01] VITALS: BP 124/86
[2017-09-14 16:54] LABS: GLUCOMETER DEV NAME(LOC) BV2N3; GLUCOSE,POINT OF CARE 163 MG/DL (70-110)
[2017-09-14] MEDS: SIMVASTATIN 10 MG TABLET PO SCH (20:45)
[2017-09-14 21:03] LABS: GLUCOMETER DEV NAME(LOC) BV2N3; GLUCOSE,POINT OF CARE 125 MG/DL (70-110)
[2017-09-15 04:00] VITALS: BP 126/82
[2017-09-15] MEDS: MetFORMIN HCL 500 MG TABLET PO SCH ×2 (06:46→16:43)
[2017-09-15 06:50] LABS: GLUCOMETER DEV NAME(LOC) BV2N3; GLUCOSE,POINT OF CARE 191 MG/DL (70-110)
[2017-09-15] MEDS: INSULIN LISPRO 100 UNITS/ML SQ PRN ×4 (06:55→20:47)
[2017-09-15] MEDS: TraMADol HCL 50 MG TABLET PO PRN ×2 (07:08→18:35)
[2017-09-15 08:12] VITALS: BP 124/78
[2017-09-15] MEDS: POLYETHYLENE GLYCOL 3350 17 GM PACKET PO SCH (08:36)
[2017-09-15] MEDS: DOCUSATE SODIUM 100 MG CAPSULE PO SCH ×2 (08:36→16:43)
[2017-09-15] MEDS: VENLAFAXINE HCL 75 MG ER CAPSULE PO SCH (08:36)
[2017-09-15] MEDS: DUTASTERIDE 0.5 MG CAPSULE PO SCH (08:36)
[2017-09-15] MEDS: NICOTINE 14 MG/24 HOUR PATCH TD SCH (08:37)
[2017-09-15 08:44] LABS: GLUCOMETER DEV NAME(LOC) BV2N3; GLUCOSE,POINT OF CARE 263 MG/DL (70-110)
[2017-09-15] MEDS: INSULIN GLARGINE,HUM.REC.ANLOG 100 UNITS/ML SQ SCH ×2 (08:44→20:47)
[2017-09-15] MEDS: TiZANidine HCL 4 MG TABLET PO SCH ×3 (09:00→16:44)
[2017-09-15 11:13] LABS: GLUCOMETER DEV NAME(LOC) BV2N3; GLUCOSE,POINT OF CARE 259 MG/DL (70-110)
[2017-09-15 16:03] VITALS: BP 111/84
[2017-09-15 16:18] LABS: GLUCOMETER DEV NAME(LOC) BV2N3; GLUCOSE,POINT OF CARE 178 MG/DL (70-110)
[2017-09-15 18:35] VITALS: BP 124/74
[2017-09-15 20:24] LABS: GLUCOMETER DEV NAME(LOC) BV2N3; GLUCOSE,POINT OF CARE 173 MG/DL (70-110)
[2017-09-15] MEDS: SIMVASTATIN 10 MG TABLET PO SCH (20:50)
[2017-09-16 04:44] VITALS: BP 122/82
[2017-09-16 06:20] VITALS: BP 121/81
[2017-09-16] MEDS: TraMADol HCL 50 MG TABLET PO PRN ×2 (06:32→13:53)
[2017-09-16 06:39] LABS: GLUCOMETER DEV NAME(LOC) BV2S 2; GLUCOSE,POINT OF CARE 252 MG/DL (70-110)
[2017-09-16] MEDS: INSULIN LISPRO 100 UNITS/ML SQ PRN ×2 (07:02→11:03)
[2017-09-16] MEDS: MetFORMIN HCL 500 MG TABLET PO SCH ×2 (07:18→16:34)
[2017-09-16 08:07] VITALS: BP 125/74
[2017-09-16] MEDS: DOCUSATE SODIUM 100 MG CAPSULE PO SCH ×2 (08:16→16:34)
[2017-09-16] MEDS: POLYETHYLENE GLYCOL 3350 17 GM PACKET PO SCH (08:16)
[2017-09-16] MEDS: VENLAFAXINE HCL 75 MG ER CAPSULE PO SCH (08:16)
[2017-09-16] MEDS: DUTASTERIDE 0.5 MG CAPSULE PO SCH (08:16)
[2017-09-16] MEDS: TiZANidine HCL 4 MG TABLET PO SCH ×3 (08:16→16:34)
[2017-09-16] MEDS: NICOTINE 14 MG/24 HOUR PATCH TD SCH (08:20)
[2017-09-16] MEDS: INSULIN GLARGINE,HUM.REC.ANLOG 100 UNITS/ML SQ SCH ×2 (08:31→20:37)
[2017-09-16 08:34] LABS: GLUCOMETER DEV NAME(LOC) BV2N3; GLUCOSE,POINT OF CARE 250 MG/DL (70-110)
[2017-09-16 11:08] LABS: GLUCOMETER DEV NAME(LOC) BV2N3; GLUCOSE,POINT OF CARE 207 MG/DL (70-110)
[2017-09-16] MEDS: MAGNESIUM CITRATE 300 ML ORAL SOLUTION PO PRN (12:02)
[2017-09-16 13:53] VITALS: BP 122/80
[2017-09-16 16:00] VITALS: BP 122/74
[2017-09-16 16:24] LABS: GLUCOMETER DEV NAME(LOC) BV2N3; GLUCOSE,POINT OF CARE 127 MG/DL (70-110)
[2017-09-16 20:24] LABS: GLUCOMETER DEV NAME(LOC) BV2N3; GLUCOSE,POINT OF CARE 138 MG/DL (70-110)
[2017-09-16] MEDS: SIMVASTATIN 10 MG TABLET PO SCH (20:32)
[2017-09-17 04:59] VITALS: BP 121/95
[2017-09-17] MEDS: MetFORMIN HCL 500 MG TABLET PO SCH ×2 (06:43→16:37)
[2017-09-17 06:50] LABS: GLUCOMETER DEV NAME(LOC) BV2N3; GLUCOSE,POINT OF CARE 122 MG/DL (70-110)
[2017-09-17] MEDS: TraMADol HCL 50 MG TABLET PO PRN (07:15)
[2017-09-17] MEDS: DOCUSATE SODIUM 100 MG CAPSULE PO SCH ×2 (08:23→16:37)
[2017-09-17] MEDS: VENLAFAXINE HCL 75 MG ER CAPSULE PO SCH (08:23)
[2017-09-17] MEDS: DUTASTERIDE 0.5 MG CAPSULE PO SCH (08:23)
[2017-09-17 08:24] VITALS: BP 118/80
[2017-09-17] MEDS: NICOTINE 14 MG/24 HOUR PATCH TD SCH (08:24)
[2017-09-17] MEDS: POLYETHYLENE GLYCOL 3350 17 GM PACKET PO SCH (08:24)
[2017-09-17] MEDS: TiZANidine HCL 4 MG TABLET PO SCH ×3 (08:24→16:37)
[2017-09-17] MEDS: INSULIN GLARGINE,HUM.REC.ANLOG 100 UNITS/ML SQ SCH ×2 (08:35→20:36)
[2017-09-17 08:49] LABS: GLUCOMETER DEV NAME(LOC) BV2N3; GLUCOSE,POINT OF CARE 197 MG/DL (70-110)
[2017-09-17] MEDS: INSULIN LISPRO 100 UNITS/ML SQ PRN ×2 (11:00→16:39)
[2017-09-17 11:09] LABS: GLUCOMETER DEV NAME(LOC) BV2N3; GLUCOSE,POINT OF CARE 228 MG/DL (70-110)
[2017-09-17] MEDS: MAGNESIUM CITRATE 300 ML ORAL SOLUTION PO PRN (12:03)
[2017-09-17 16:03] VITALS: BP 107/67
[2017-09-17 16:34] LABS: GLUCOMETER DEV NAME(LOC) BV2N3; GLUCOSE,POINT OF CARE 186 MG/DL (70-110)
[2017-09-17] MEDS: SIMVASTATIN 10 MG TABLET PO SCH (20:37)
[2017-09-17 20:39] LABS: GLUCOMETER DEV NAME(LOC) BV2N3; GLUCOSE,POINT OF CARE 116 MG/DL (70-110)
[2017-09-18 05:39] LABS: GLUCOMETER DEV NAME(LOC) BV2N3; GLUCOSE,POINT OF CARE 182 MG/DL (70-110)
[2017-09-18 06:26] VITALS: BP 106/69
[2017-09-18] MEDS: MetFORMIN HCL 500 MG TABLET PO SCH ×2 (06:57→16:40)
[2017-09-18] MEDS: INSULIN LISPRO 100 UNITS/ML SQ PRN ×4 (07:14→20:51)
[2017-09-18 08:24] VITALS: BP 123/72
[2017-09-18] MEDS: POLYETHYLENE GLYCOL 3350 17 GM PACKET PO SCH (08:24)
[2017-09-18] MEDS: DOCUSATE SODIUM 100 MG CAPSULE PO SCH ×2 (08:25→16:41)
[2017-09-18] MEDS: VENLAFAXINE HCL 75 MG ER CAPSULE PO SCH (08:25)
[2017-09-18] MEDS: DUTASTERIDE 0.5 MG CAPSULE PO SCH (08:25)
[2017-09-18] MEDS: TiZANidine HCL 4 MG TABLET PO SCH ×3 (08:26→16:40)
[2017-09-18] MEDS: NICOTINE 14 MG/24 HOUR PATCH TD SCH (08:29)
[2017-09-18] MEDS: INSULIN GLARGINE,HUM.REC.ANLOG 100 UNITS/ML SQ SCH ×2 (08:33→20:52)
[2017-09-18 08:44] LABS: GLUCOMETER DEV NAME(LOC) BV2N3; GLUCOSE,POINT OF CARE 241 MG/DL (70-110)
[2017-09-18 11:44] LABS: GLUCOMETER DEV NAME(LOC) BV2N3; GLUCOSE,POINT OF CARE 348 MG/DL (70-110)
[2017-09-18 16:09] VITALS: BP 124/89
[2017-09-18 16:28] LABS: GLUCOMETER DEV NAME(LOC) BV2N3; GLUCOSE,POINT OF CARE 190 MG/DL (70-110)
[2017-09-18 20:48] LABS: GLUCOMETER DEV NAME(LOC) BV2N3; GLUCOSE,POINT OF CARE 244 MG/DL (70-110)
[2017-09-18] MEDS: SIMVASTATIN 10 MG TABLET PO SCH (20:48)
[2017-09-19 00:15] VITALS: BP 120/81
[2017-09-19] MEDS: MetFORMIN HCL 500 MG TABLET PO SCH ×2 (06:45→16:43)
[2017-09-19 06:55] VITALS: BP 126/84
[2017-09-19] MEDS: TraMADol HCL 50 MG TABLET PO PRN (06:56)
[2017-09-19 06:59] LABS: GLUCOMETER DEV NAME(LOC) BV2N3; GLUCOSE,POINT OF CARE 122 MG/DL (70-110)
[2017-09-19] MEDS: NICOTINE 14 MG/24 HOUR PATCH TD SCH (08:24)
[2017-09-19] MEDS: POLYETHYLENE GLYCOL 3350 17 GM PACKET PO SCH (08:24)
[2017-09-19] MEDS: DUTASTERIDE 0.5 MG CAPSULE PO SCH (08:25)
[2017-09-19] MEDS: DOCUSATE SODIUM 100 MG CAPSULE PO SCH ×2 (08:25→16:43)
[2017-09-19] MEDS: VENLAFAXINE HCL 75 MG ER CAPSULE PO SCH (08:25)
[2017-09-19] MEDS: TiZANidine HCL 4 MG TABLET PO SCH ×3 (08:25→16:44)
[2017-09-19] MEDS: INSULIN GLARGINE,HUM.REC.ANLOG 100 UNITS/ML SQ SCH ×2 (08:35→20:45)
[2017-09-19 08:43] LABS: GLUCOMETER DEV NAME(LOC) BV2N3; GLUCOSE,POINT OF CARE 338 MG/DL (70-110)
[2017-09-19 08:46] VITALS: BP 119/68
[2017-09-19 11:08] LABS: GLUCOMETER DEV NAME(LOC) BV2N3; GLUCOSE,POINT OF CARE 254 MG/DL (70-110)
[2017-09-19] MEDS: INSULIN LISPRO 100 UNITS/ML SQ PRN ×3 (11:11→20:45)
[2017-09-19] MEDS: MAGNESIUM CITRATE 300 ML ORAL SOLUTION PO PRN (12:12)
[2017-09-19 16:03] VITALS: BP 121/86
[2017-09-19 16:24] LABS: GLUCOMETER DEV NAME(LOC) BV2N3; GLUCOSE,POINT OF CARE 271 MG/DL (70-110)
[2017-09-19] MEDS: SIMVASTATIN 10 MG TABLET PO SCH (20:42)
[2017-09-19 21:13] LABS: GLUCOMETER DEV NAME(LOC) BV2N3; GLUCOSE,POINT OF CARE 219 MG/DL (70-110)
[2017-09-20 06:09] LABS: GLUCOMETER DEV NAME(LOC) BV2N3; GLUCOSE,POINT OF CARE 70 MG/DL (70-110)
[2017-09-20 06:26] VITALS: BP 123/77
[2017-09-20] MEDS: MetFORMIN HCL 500 MG TABLET PO SCH ×2 (07:10→16:37)
[2017-09-20 08:08] VITALS: BP 131/78
[2017-09-20] MEDS: TiZANidine HCL 4 MG TABLET PO SCH ×3 (08:09→16:37)
[2017-09-20] MEDS: VENLAFAXINE HCL 75 MG ER CAPSULE PO SCH (08:11)
[2017-09-20] MEDS: DUTASTERIDE 0.5 MG CAPSULE PO SCH (08:11)
[2017-09-20] MEDS: DOCUSATE SODIUM 100 MG CAPSULE PO SCH ×2 (08:11→16:37)
[2017-09-20] MEDS: NICOTINE 14 MG/24 HOUR PATCH TD SCH (08:13)
[2017-09-20] MEDS: POLYETHYLENE GLYCOL 3350 17 GM PACKET PO SCH (08:14)
[2017-09-20] MEDS: INSULIN GLARGINE,HUM.REC.ANLOG 100 UNITS/ML SQ SCH ×2 (08:25→20:33)
[2017-09-20 08:38] LABS: GLUCOMETER DEV NAME(LOC) BV2N3; GLUCOSE,POINT OF CARE 281 MG/DL (70-110)
[2017-09-20] MEDS: INSULIN LISPRO 100 UNITS/ML SQ PRN ×3 (11:26→20:34)
[2017-09-20 11:29] LABS: GLUCOMETER DEV NAME(LOC) BV2N3; GLUCOSE,POINT OF CARE 263 MG/DL (70-110)
[2017-09-20 16:33] LABS: GLUCOMETER DEV NAME(LOC) BV2N3; GLUCOSE,POINT OF CARE 206 MG/DL (70-110)
[2017-09-20 17:01] VITALS: BP 135/72
[2017-09-20 20:28] LABS: GLUCOMETER DEV NAME(LOC) BV2N3; GLUCOSE,POINT OF CARE 187 MG/DL (70-110)
[2017-09-20] MEDS: SIMVASTATIN 10 MG TABLET PO SCH (20:33)
[2017-09-21] VITALS: BP 121/77
[2017-09-21] MEDS: MetFORMIN HCL 500 MG TABLET PO SCH ×2 (07:24→16:38)
[2017-09-21 07:28] LABS: GLUCOMETER DEV NAME(LOC) BV2N3; GLUCOSE,POINT OF CARE 133 MG/DL (70-110)
[2017-09-21 08:09] VITALS: BP 110/75
[2017-09-21] MEDS: DUTASTERIDE 0.5 MG CAPSULE PO SCH (08:10)
[2017-09-21] MEDS: TiZANidine HCL 4 MG TABLET PO SCH ×3 (08:10→16:38)
[2017-09-21] MEDS: VENLAFAXINE HCL 75 MG ER CAPSULE PO SCH (08:10)
[2017-09-21] MEDS: DOCUSATE SODIUM 100 MG CAPSULE PO SCH ×2 (08:10→16:38)
[2017-09-21] MEDS: NICOTINE 14 MG/24 HOUR PATCH TD SCH (08:11)
[2017-09-21] MEDS: POLYETHYLENE GLYCOL 3350 17 GM PACKET PO SCH (08:11)
[2017-09-21] MEDS: INSULIN GLARGINE,HUM.REC.ANLOG 100 UNITS/ML SQ SCH ×2 (08:25→20:59)
[2017-09-21 08:34] LABS: GLUCOMETER DEV NAME(LOC) BV2N3; GLUCOSE,POINT OF CARE 238 MG/DL (70-110)
[2017-09-21] MEDS: INSULIN LISPRO 100 UNITS/ML SQ PRN ×3 (11:01→20:59)
[2017-09-21 11:08] LABS: GLUCOMETER DEV NAME(LOC) BV2N3; GLUCOSE,POINT OF CARE 339 MG/DL (70-110)
[2017-09-21 16:24] VITALS: BP 116/78
[2017-09-21 16:29] LABS: GLUCOMETER DEV NAME(LOC) BV2N3; GLUCOSE,POINT OF CARE 193 MG/DL (70-110)
[2017-09-21] MEDS: MAGNESIUM CITRATE 300 ML ORAL SOLUTION PO PRN (17:13)
[2017-09-21 20:23] LABS: GLUCOMETER DEV NAME(LOC) BV2N3; GLUCOSE,POINT OF CARE 185 MG/DL (70-110)
[2017-09-21 20:38] VITALS: BP 116/78
[2017-09-21] MEDS: TraMADol HCL 50 MG TABLET PO PRN (20:38)
[2017-09-21] MEDS: SIMVASTATIN 10 MG TABLET PO SCH (20:50)
[2017-09-22 01:45] VITALS: BP 118/70
[2017-09-22 06:39] LABS: GLUCOMETER DEV NAME(LOC) BV2N3; GLUCOSE,POINT OF CARE 102 MG/DL (70-110)
[2017-09-22 06:59] VITALS: BP 116/72
[2017-09-22] MEDS: MetFORMIN HCL 500 MG TABLET PO SCH ×2 (07:03→16:38)
[2017-09-22] MEDS: TraMADol HCL 50 MG TABLET PO PRN (07:22)
[2017-09-22] MEDS: DOCUSATE SODIUM 100 MG CAPSULE PO SCH ×2 (08:03→16:08)
[2017-09-22] MEDS: POLYETHYLENE GLYCOL 3350 17 GM PACKET PO SCH (08:03)
[2017-09-22] MEDS: TiZANidine HCL 4 MG TABLET PO SCH ×3 (08:03→16:08)
[2017-09-22] MEDS: VENLAFAXINE HCL 75 MG ER CAPSULE PO SCH (08:03)
[2017-09-22] MEDS: NICOTINE 14 MG/24 HOUR PATCH TD SCH (08:03)
[2017-09-22] MEDS: DUTASTERIDE 0.5 MG CAPSULE PO SCH (08:03)
[2017-09-22] MEDS: INSULIN GLARGINE,HUM.REC.ANLOG 100 UNITS/ML SQ SCH ×2 (08:17→21:06)
[2017-09-22 08:22] VITALS: BP 122/87
[2017-09-22 08:33] LABS: GLUCOMETER DEV NAME(LOC) BV2N3; GLUCOSE,POINT OF CARE 307 MG/DL (70-110)
[2017-09-22] MEDS: INSULIN LISPRO 100 UNITS/ML SQ PRN ×3 (11:02→21:05)
[2017-09-22 11:13] LABS: GLUCOMETER DEV NAME(LOC) BV2N3; GLUCOSE,POINT OF CARE 284 MG/DL (70-110)
[2017-09-22] MEDS: OxyCODONE HCL 5 MG IR TABLET PO PRN (16:08)
[2017-09-22 16:14] VITALS: BP 124/84
[2017-09-22 18:59] LABS: GLUCOMETER DEV NAME(LOC) BV2N3; GLUCOSE,POINT OF CARE 203 MG/DL (70-110)
[2017-09-22] MEDS: SIMVASTATIN 10 MG TABLET PO SCH (20:56)
[2017-09-22 21:09] LABS: GLUCOMETER DEV NAME(LOC) BV2N3; GLUCOSE,POINT OF CARE 237 MG/DL (70-110)
[2017-09-23] VITALS: BP 109/63
[2017-09-23] MEDS: OxyCODONE HCL 5 MG IR TABLET PO PRN ×4 (00:06→21:02)
[2017-09-23 06:17] VITALS: BP 125/77
[2017-09-23] MEDS: MetFORMIN HCL 500 MG TABLET PO SCH ×2 (06:42→16:30)
[2017-09-23] MEDS: VENLAFAXINE HCL 75 MG ER CAPSULE PO SCH (08:10)
[2017-09-23] MEDS: DUTASTERIDE 0.5 MG CAPSULE PO SCH (08:10)
[2017-09-23] MEDS: POLYETHYLENE GLYCOL 3350 17 GM PACKET PO SCH (08:10)
[2017-09-23] MEDS: DOCUSATE SODIUM 100 MG CAPSULE PO SCH ×2 (08:10→16:12)
[2017-09-23] MEDS: TiZANidine HCL 4 MG TABLET PO SCH ×3 (08:10→16:13)
[2017-09-23] MEDS: NICOTINE 14 MG/24 HOUR PATCH TD SCH (08:11)
[2017-09-23] MEDS: INSULIN GLARGINE,HUM.REC.ANLOG 100 UNITS/ML SQ SCH ×2 (08:17→20:33)
[2017-09-23 08:24] VITALS: BP 111/80
[2017-09-23 08:24] LABS: GLUCOMETER DEV NAME(LOC) BV2N3; GLUCOSE,POINT OF CARE 199 MG/DL (70-110)
[2017-09-23] MEDS: INSULIN LISPRO 100 UNITS/ML SQ PRN ×3 (11:06→20:32)
[2017-09-23 11:08] LABS: GLUCOMETER DEV NAME(LOC) BV2N3; GLUCOSE,POINT OF CARE 187 MG/DL (70-110)
[2017-09-23 13:41] VITALS: BP 121/87
[2017-09-23] MEDS: MAGNESIUM CITRATE 300 ML ORAL SOLUTION PO PRN (13:41)
[2017-09-23 16:18] VITALS: BP 119/77
[2017-09-23 16:48] LABS: GLUCOMETER DEV NAME(LOC) BV2N3; GLUCOSE,POINT OF CARE 211 MG/DL (70-110)
[2017-09-23] MEDS: SIMVASTATIN 10 MG TABLET PO SCH (20:26)
[2017-09-23 21:02] VITALS: BP 120/68
[2017-09-23 21:23] LABS: GLUCOMETER DEV NAME(LOC) BV2N3; GLUCOSE,POINT OF CARE 189 MG/DL (70-110)
[2017-09-24 01:16] VITALS: BP 137/80
[2017-09-24] MEDS: OxyCODONE HCL 5 MG IR TABLET PO PRN ×3 (06:15→18:38)
[2017-09-24 06:16] VITALS: BP 123/89
[2017-09-24] MEDS: MetFORMIN HCL 500 MG TABLET PO SCH ×2 (06:52→16:46)
[2017-09-24 07:44] LABS: GLUCOMETER DEV NAME(LOC) BV2N3; GLUCOSE,POINT OF CARE 84 MG/DL (70-110)
[2017-09-24] MEDS: VENLAFAXINE HCL 75 MG ER CAPSULE PO SCH (08:29)
[2017-09-24] MEDS: DUTASTERIDE 0.5 MG CAPSULE PO SCH (08:29)
[2017-09-24] MEDS: DOCUSATE SODIUM 100 MG CAPSULE PO SCH ×2 (08:29→16:47)
[2017-09-24] MEDS: TiZANidine HCL 4 MG TABLET PO SCH ×3 (08:29→16:46)
[2017-09-24] MEDS: POLYETHYLENE GLYCOL 3350 17 GM PACKET PO SCH (08:30)
[2017-09-24] MEDS: NICOTINE 14 MG/24 HOUR PATCH TD SCH (08:30)
[2017-09-24 08:36] VITALS: BP 119/74
[2017-09-24] MEDS: INSULIN GLARGINE,HUM.REC.ANLOG 100 UNITS/ML SQ SCH ×2 (08:42→21:00)
[2017-09-24 08:53] LABS: GLUCOMETER DEV NAME(LOC) BV2N3; GLUCOSE,POINT OF CARE 236 MG/DL (70-110)
[2017-09-24] MEDS: INSULIN LISPRO 100 UNITS/ML SQ PRN ×2 (11:09→16:50)
[2017-09-24 11:13] LABS: GLUCOMETER DEV NAME(LOC) BV2N3; GLUCOSE,POINT OF CARE 203 MG/DL (70-110)
[2017-09-24 12:29] VITALS: BP 124/80
[2017-09-24 16:15] VITALS: BP 124/88
[2017-09-24 16:29] LABS: GLUCOMETER DEV NAME(LOC) BV2N3; GLUCOSE,POINT OF CARE 223 MG/DL (70-110)
[2017-09-24] MEDS: MAGNESIUM CITRATE 300 ML ORAL SOLUTION PO PRN (18:21)
[2017-09-24 18:38] VITALS: BP 126/75
[2017-09-24 20:18] LABS: GLUCOMETER DEV NAME(LOC) BV2N3; GLUCOSE,POINT OF CARE 98 MG/DL (70-110)
[2017-09-24] MEDS: SIMVASTATIN 10 MG TABLET PO SCH (20:29)
[2017-09-24 21:54] LABS: GLUCOMETER DEV NAME(LOC) BV2N3; GLUCOSE,POINT OF CARE 185 MG/DL (70-110)
[2017-09-24 23:08] LABS: GLUCOMETER DEV NAME(LOC) BV2N3; GLUCOSE,POINT OF CARE 174 MG/DL (70-110)
[2017-09-25 00:30] VITALS: BP 121/71
[2017-09-25] MEDS: OxyCODONE HCL 5 MG IR TABLET PO PRN ×2 (00:41→08:23)
[2017-09-25 06:45] LABS: GLUCOMETER DEV NAME(LOC) BV2N3; GLUCOSE,POINT OF CARE 74 MG/DL (70-110)
[2017-09-25] MEDS: MetFORMIN HCL 500 MG TABLET PO SCH (07:19)
[2017-09-25] MEDS: VENLAFAXINE HCL 75 MG ER CAPSULE PO SCH (08:22)
[2017-09-25] MEDS: DUTASTERIDE 0.5 MG CAPSULE PO SCH (08:22)
[2017-09-25] MEDS: TiZANidine HCL 4 MG TABLET PO SCH ×2 (08:22→12:26)
[2017-09-25 08:23] VITALS: BP 123/89
[2017-09-25] MEDS: NICOTINE 14 MG/24 HOUR PATCH TD SCH (08:23)
[2017-09-25] MEDS: POLYETHYLENE GLYCOL 3350 17 GM PACKET PO SCH (08:23)
[2017-09-25] MEDS: DOCUSATE SODIUM 100 MG CAPSULE PO SCH (08:23)
[2017-09-25] MEDS: INSULIN GLARGINE,HUM.REC.ANLOG 100 UNITS/ML SQ SCH (08:31)
[2017-09-25 08:39] LABS: GLUCOMETER DEV NAME(LOC) BV2N3; GLUCOSE,POINT OF CARE 209 MG/DL (70-110)
[2017-09-25 08:46] VITALS: BP 123/89
[2017-09-25] MEDS ORDERED: INSLAN SQ (08:54)
[2017-09-25] MEDS ORDERED: TIZA2CAP PO (08:54)
[2017-09-25] MEDS ORDERED: INSU100C14 SQ (09:06)
[2017-09-25] MEDS: INSULIN LISPRO 100 UNITS/ML SQ PRN (11:04)
[2017-09-25 11:08] LABS: GLUCOMETER DEV NAME(LOC) BV2N3; GLUCOSE,POINT OF CARE 223 MG/DL (70-110)
== END 2017-09-25 13:35 | disposition home or self-care (01) | DRG 885 ==
LOC: EDBD → B2X 21:00
PROVIDERS: ADMIT Psychiatry & Neurology Psychiatry; ATTEND Psychiatry & Neurology Child & Adolescent Psychiatry
DX: F33.2 Major depressive disorder, recurrent severe without psychotic features (principal); R45.851 Suicidal ideations; F12.90 Cannabis use, unspecified, uncomplicated; Z59.0 Homelessness; M62.838 Other muscle spasm; M54.2 Cervicalgia; E78.5 Hyperlipidemia, unspecified; K59.00 Constipation, unspecified; F41.9 Anxiety disorder, unspecified; E11.65 Type 2 diabetes mellitus with hyperglycemia; I10 Essential (primary) hypertension; F10.20 Alcohol dependence, uncomplicated; R33.9 Retention of urine, unspecified; G47.00 Insomnia, unspecified; F17.200 Nicotine dependence, unspecified, uncomplicated; Z88.0 Allergy status to penicillin; Z88.8 Allergy status to other drugs, medicaments and biological substances; Z87.820 Personal history of traumatic brain injury; Z81.8 Family history of other mental and behavioral disorders; Z71.41 Alcohol abuse counseling and surveillance of alcoholic; Z71.6 Tobacco abuse counseling
CPT/HCPCS: 83036; 84439; 84443; 87081; J1815

== ENCOUNTER 2018-08-21 23:10 | Inpatient (IN) | payer MEDICARE, MEDICAID ==
[~2018-08-21] VITALS: Ht 170.2 cm; Wt 63.5 kg
[2018-08-21 20:30] VITALS: BP 126/86
[~2018-08-21 23:10] MED LIST changes: +-PHARMACY VACCINE NOTE- MISC ONE; +HALOPERIDOL 5 MG TABLET PO PRN; +INSU100C14 SQ; +METF-960 PO; -METF500T6 PO; -MIRALAX PO; +TIZA2CAP PO
[2018-08-21 23:40] LABS: BASOPHILS % (AUTO) 0.5 % (0.0-2.0); EOSINOPHILS % (AUTO) 0.7 % (1.0-6.0); HEMATOCRIT 36.8 % (41-53); HEMOGLOBIN 12.6 g/dL (13.5-17.5); LYMPHOCYTES # (AUTO) 2.9 K/uL (1.0-4.8); LYMPHOCYTES % (AUTO) 41.5 % (22.0-44.0); MEAN CORPUSCULAR HGB CONC 34.3 G/dL (31.0-37.0); MEAN CORPUSCULAR VOLUME 90 fL (80-100); MONOCYTES # (AUTO) 0.5 K/uL (0.1-1.0); MONOCYTES % (AUTO) 7.1 % (2.0-9.0); NEUTROPHILS # (AUTO) 3.5 K/uL (1.8-7.7); NEUTROPHILS % (AUTO) 50.2 % (40.0-70.0); PLATELET COUNT (AUTO) 239 K/uL (150-450); RED BLOOD CELL COUNT(AUTO) 4.07 MIL/uL (4.50-5.90); RED CELL DISTRIBUTION WIDTH 12.7 % (11.5-14.5)
[2018-08-21 23:56] LABS: ALBUMIN 3.7 g/dL (3.4-5.0); BILIRUBIN,TOTAL 0.2 mg/dL (0.1-1.0); CALCIUM, TOTAL 8.5 mg/dL (8.8-10.5); CREATININE 1.36 mg/dL (0.60-1.30); POTASSIUM 4.2 mmol/L (3.5-5.1)
[2018-08-22] VITALS (9 sets, daily range): BP systolic 115–138; BP diastolic 63–86
[2018-08-22] MEDS ORDERED: INSULIN LISPRO 100 UNITS/ML SQ ONE ×2 (00:30→02:15)
[2018-08-22 01:52] LABS: AMPHET/METH SCREEN,URINE NEGATIVE (NEGATIVE); BARBITURATE SCREEN, URINE NEGATIVE (NEGATIVE); BENZODIAZEPINES SCREEN,URINE NEGATIVE (NEGATIVE); CANNABINOID SCREEN,URINE POSITIVE (NEGATIVE); COCAINE SCREEN,URINE NEGATIVE (NEGATIVE); METHADONE SCREEN, URINE NEGATIVE (NEGATIVE); OPIATE SCREEN,URINE NEGATIVE (NEGATIVE)
[2018-08-22 01:58] LABS: PHENCYCLIDINE SCREEN,URINE NEGATIVE (NEGATIVE)
[2018-08-22 02:09] LABS: GLUCOSE,POINT OF CARE 423 MG/DL (70-110)
[2018-08-22] MEDS ORDERED: ALBUTEROL SULFATE HFA 90 MCG/PUFF 8 GM INHALER IH PRN ×2 (05:00→07:30)
[2018-08-22] MEDS ORDERED: LOPERAMIDE HCL 2 MG CAPSULE PO PRN ×2 (05:00→07:30)
[2018-08-22] MEDS ORDERED: BENZOCAINE/MENTHOL LOZENGE MM PRN ×2 (05:00→07:30)
[2018-08-22] MEDS ORDERED: MAGNESIUM HYDROXIDE SUSPENSION 30 ML UDCUP PO PRN ×2 (05:00→07:30)
[2018-08-22] MEDS ORDERED: MAG HYDROX/AL HYDROX/SIMETH ES 30 ML SUSPENSION UDCUP PO PRN ×2 (05:00→07:30)
[2018-08-22] MEDS ORDERED: CloNIDine HCL 0.1 MG TABLET PO PRN ×2 (05:00→07:30)
[2018-08-22] MEDS ORDERED: PETROLATUM,WHITE 28 GM JELLY TP PRN ×2 (05:00→07:30)
[2018-08-22] MEDS ORDERED: BACITRACIN 28.4 GM OINTMENT TP PRN ×2 (05:00→07:30)
[2018-08-22] MEDS ORDERED: ONDANSETRON HCL 4 MG TABLET PO PRN ×2 (05:00→07:30)
[2018-08-22] MEDS ORDERED: GLUCAGON,HUMAN RECOMBINANT 1 MG VIAL IM PRN ×2 (06:45→07:30)
[2018-08-22] MEDS ORDERED: INSULIN LISPRO 100 UNITS/ML SQ PRN (06:45)
[2018-08-22 06:49] LABS: GLUCOMETER DEV NAME(LOC) BV2S.; GLUCOSE,POINT OF CARE 351 MG/DL (70-110)
[2018-08-22] MEDS: OMEPRAZOLE 20 MG CAPSULE PO SCH (08:18)
[2018-08-22] MEDS: DOCUSATE SODIUM 100 MG CAPSULE PO SCH (08:18)
[2018-08-22] MEDS: INSULIN GLARGINE,HUM.REC.ANLOG 100 UNITS/ML SQ SCH ×2 (08:23→21:16)
[2018-08-22 08:29] LABS: GLUCOMETER DEV NAME(LOC) BV2S.; GLUCOSE,POINT OF CARE 337 MG/DL (70-110)
[2018-08-22 08:43] LABS: CHOL/HDL RATIO 5.2 (4.2-7.3); CHOLESTEROL 165 mg/dL (131-200); HDL CHOLESTEROL 32 mg/dL (40-60); THYROID STIMULATING HORMONE 0.38 uIU/mL (0.36-3.74); TRIGLYCERIDES 469 mg/dL (15-150)
[2018-08-22] MEDS ORDERED: OMEPRAZOLE 20 MG CAPSULE PO SCH (09:00)
[2018-08-22] MEDS ORDERED: DOCUSATE SODIUM 100 MG CAPSULE PO SCH (09:00)
[2018-08-22] MEDS: INSULIN LISPRO 100 UNITS/ML SQ PRN ×3 (11:10→21:22)
[2018-08-22 11:19] LABS: GLUCOMETER DEV NAME(LOC) BV2S.; GLUCOSE,POINT OF CARE 326 MG/DL (70-110)
[2018-08-22 16:19] LABS: GLUCOMETER DEV NAME(LOC) BV2S.; GLUCOSE,POINT OF CARE 493 MG/DL (70-110)
[2018-08-22] MEDS: MetFORMIN HCL 500 MG TABLET PO SCH (16:37)
[2018-08-22] MEDS: NICOTINE 14 MG/24 HOUR PATCH TD PRN (19:02)
[2018-08-22] MEDS: SIMVASTATIN 10 MG TABLET PO SCH (20:15)
[2018-08-22 20:24] LABS: GLUCOMETER DEV NAME(LOC) BV2S.; GLUCOSE,POINT OF CARE 395 MG/DL (70-110)
[2018-08-23 01:29] VITALS: BP 147/83
[2018-08-23 06:39] VITALS: BP 128/79
[2018-08-23 07:22] VITALS: BP 113/84
[2018-08-23] MEDS: MetFORMIN HCL 500 MG TABLET PO SCH ×2 (07:23→16:49)
[2018-08-23] MEDS: INSULIN LISPRO 100 UNITS/ML SQ PRN ×4 (07:28→20:42)
[2018-08-23 07:37] LABS: GLUCOMETER DEV NAME(LOC) BV2S.; GLUCOSE,POINT OF CARE 265 MG/DL (70-110)
[2018-08-23] MEDS: OMEPRAZOLE 20 MG CAPSULE PO SCH (08:14)
[2018-08-23] MEDS: MULTIVITAMINS WITH MINERALS, THERAPEUTIC TABLET PO SCH (08:14)
[2018-08-23] MEDS: OMEGA-3/DHA/EPA/FISH OIL 1,000 MG CAPSULE PO SCH (08:14)
[2018-08-23] MEDS: DOCUSATE SODIUM 100 MG CAPSULE PO SCH (08:14)
[2018-08-23] MEDS: BUPRENORPHINE HCL/NALOXONE HCL 2-0.5 MG SUBLINGUAL TABLET SL SCH ×2 (08:15→16:49)
[2018-08-23] MEDS: INSULIN GLARGINE,HUM.REC.ANLOG 100 UNITS/ML SQ SCH ×2 (08:19→20:42)
[2018-08-23 08:28] VITALS: BP 113/64
[2018-08-23 11:14] LABS: GLUCOMETER DEV NAME(LOC) BV2S.; GLUCOSE,POINT OF CARE 328 MG/DL (70-110)
[2018-08-23] MEDS: NICOTINE 14 MG/24 HOUR PATCH TD PRN (11:54)
[2018-08-23 16:39] LABS: GLUCOMETER DEV NAME(LOC) BV2S.; GLUCOSE,POINT OF CARE 335 MG/DL (70-110)
[2018-08-23] MEDS: SIMVASTATIN 10 MG TABLET PO SCH (20:28)
[2018-08-23 20:33] VITALS: BP 120/90
[2018-08-23 21:09] LABS: GLUCOMETER DEV NAME(LOC) BV2S.; GLUCOSE,POINT OF CARE 189 MG/DL (70-110)
[2018-08-24 01:49] VITALS: BP 136/85
[2018-08-24 06:29] LABS: GLUCOMETER DEV NAME(LOC) BV2S.; GLUCOSE,POINT OF CARE 239 MG/DL (70-110)
[2018-08-24] MEDS: MetFORMIN HCL 500 MG TABLET PO SCH (06:33)
[2018-08-24] MEDS: INSULIN LISPRO 100 UNITS/ML SQ PRN ×2 (06:53→11:01)
[2018-08-24] MEDS: OMEGA-3/DHA/EPA/FISH OIL 1,000 MG CAPSULE PO SCH (08:21)
[2018-08-24] MEDS: BUPRENORPHINE HCL/NALOXONE HCL 2-0.5 MG SUBLINGUAL TABLET SL SCH (08:21)
[2018-08-24] MEDS: OMEPRAZOLE 20 MG CAPSULE PO SCH (08:21)
[2018-08-24] MEDS: MULTIVITAMINS WITH MINERALS, THERAPEUTIC TABLET PO SCH (08:21)
[2018-08-24] MEDS: DOCUSATE SODIUM 100 MG CAPSULE PO SCH (08:21)
[2018-08-24 08:26] VITALS: BP 116/76
[2018-08-24] MEDS: INSULIN GLARGINE,HUM.REC.ANLOG 100 UNITS/ML SQ SCH (08:26)
[2018-08-24 11:14] LABS: GLUCOMETER DEV NAME(LOC) BV2S.; GLUCOSE,POINT OF CARE 269 MG/DL (70-110)
== END 2018-08-24 12:00 | disposition home or self-care (01) | DRG 885 ==
LOC: EMS 23:16 → B2S 08-22 02:35
PROVIDERS: ADMIT Psychiatry & Neurology Psychiatry; ATTEND Psychiatry & Neurology Psychiatry
DX: F25.9 Schizoaffective disorder, unspecified (principal); F33.2 Major depressive disorder, recurrent severe without psychotic features; R45.851 Suicidal ideations; G89.29 Other chronic pain; E11.65 Type 2 diabetes mellitus with hyperglycemia; F10.129 Alcohol abuse with intoxication, unspecified; F12.10 Cannabis abuse, uncomplicated; F41.9 Anxiety disorder, unspecified; F90.9 Attention-deficit hyperactivity disorder, unspecified type; G47.00 Insomnia, unspecified; I10 Essential (primary) hypertension; M25.562 Pain in left knee; Z88.0 Allergy status to penicillin; Z88.6 Allergy status to analgesic agent; Z79.899 Other long term (current) drug therapy; Z79.4 Long term (current) use of insulin; Z56.0 Unemployment, unspecified
CPT/HCPCS: 83036; 84439; 84443; 87081; 96372; G0480; J1815